=== PATIENT | female | born 1950 | race Caucasian/White ===

== ENCOUNTER 2020-05-06 13:38 | Inpatient (IN) ==
[2020-05-06] MEDS ORDERED: NS 1000 ML 1,000 ML IV ONE (14:03)
[2020-05-06] MEDS ORDERED: NS 1000 ML 1,000 ML ONE (14:03)
--- NOTE | 2020-05-06 14:08 | DR.DIZZY ---
HPI Time seen Time Seen by Provider: 05/06/20 14:03 PCP Primary Care Physician: maribeth Birch Complaint Chief Complaint Doctor Comments: pt janine over all weakness, She believes she is dehydrated she has no appetite is not eating plus she has diarrhea she states she has a BM whenever she eats no Brb etc.. Chief Complaint:: Have been having diarrhea with eating or drinking anything. Has been going on a few days.Norah swabbed for covid by rapid it was negative and send off was neg. Did another rapid on friday and it was negative. Self Treatment fo Chief Complaint: Took Ivermectin a week ago and took last dose on . Also has been taking zithromax along with vitamin D3,A,C,zinc COVID-19 Coronavirus risk:travel/contact w/high risk person: Yes Has patient experienced Coronavirus symptoms: No Source History Provided: Patient Mode of Arrival Mode of Arrival: Wheelchair Timing Onset of Chief Complaint: 04/21/20 Context Stroke Symptoms: None PMH PMH Past Medical History: Yes Past Medical History: Arthritis and Hypertension Past Surgical History: Yes Surgical History: Other Past Surgical History Comment: times 4 bypasses Family History History of Family Medical Conditions: Yes Family Medical History: Cancer, [place], Coronary Artery Disease and Hypertension Social History Does any household member use tobacco: No Do you use any recreational Drugs:: No Lives With: Spouse Lives Where: Home Travel Risk Coronavirus risk:travel/contact w/high risk person: Yes Has patient experienced Coronavirus symptoms: No Infectious screening In the last 2 months have you had wt loss of >10#?: NO Have you had fever, night sweats or hemotysis?: No Have you traveled outside the country in the last 6 months?: No Isolation: Droplet ROS Review of Systems Constitutional: Malaise, Weakness and Fatigue Eyes: No Symptoms Reported ENTM: No Symptoms Reported Respiratoy: No Symptoms Reported Cardiovascular: No Symptoms Reported Gastrointestinal/Abdominal: Diarrhea and Food Intolerance Genitourinary: No Symptoms Reported Neurological: No Symptoms Reported Musculoskeletal: No Symptoms Reported Integumentary: No Symptoms Reported Hematologic/Lymphatic: No Symptoms Reported Endocrine: No Symptoms Reported Psychiatric: No Symptoms Reported All Other Systems: Reviewed and Negative PE Vital Signs Vitals: Temperature 98.9 F Pulse Rate 78 Respiratory Rate 13 Blood Pressure [Left Arm] 160/69 Blood Pressure 130/61 O2 Sat by Pulse Oximetry 91 General Limitations: No Limitations General Appearance: Alert and Other (pt very weak) Head Head Exam: Normal Inspection, Atraumatic and Normocephalic Eyes Eye exam: Normal Appearance, PERRL and EOMI; negative Scleral Icterus, Conju nctival Injection and Nystagmus Pupils: Regular, Round: Bilateral Sclera/Conjunctival: Normal Inspection: Bilateral Anterior Chamber: Normal Inspection: Bilateral Posterior Chamber: Deferred: Bilateral ENT ENT Exam: Mucous Membranes Dry Neck Neck Exam: Normal Inspection, Full ROM and Trachea Midline; negative Tenderness Chest Chest Inspection: Normal Inspection and Symmetric Chest Wall Rise; negative Tenderness Respiratory Respiratory Exam: Normal Lung Sounds Bilat and Accessory Muscle Use; negative Chest Wall Tenderness Respiratory Exam: Bilateral: Clear to Auscultation Cardiovascular Cardiovascular Exam: Regular Rate, Normal Rhythm and Normal Heart Sounds Abdominal Exam Abdominal Exam: Normal Inspection, Normal Bowel Sounds and Soft; negative Distention, Tenderness and Guarding Rectal Rectal Exam: Deferred Extremeties Extremities Exam: Normal Inspection and Full ROM; negative Tenderness Back Back Exam: Normal Inspection and Full ROM; negative Tenderness Neurologic Neurological Exam: Alert, Oriented X3 and Normal Gait Patient Oriented To: Person, Place and Time Speech: Fluid Speech Cerebellar Function: Normal Gait Motor Strength - LUE: 5/5 Motor Strength - RUE: 5/5 Motor Strength - LLE: 5/5 Motor Strength - RLE: 5/5 Psychiatric Psychiatric Exam: Normal Affect and Normal Mood Skin Skin Exam: Warm, Dry, Intact and Normal Color MDM Differential Diagnosis Differential Diagnosis: Anemia, Dehydration, Dysrhythmia, Electrolyte disorder, Hypoglycemia and Pulmonary embolus Differential Diagnosis Comment: COVID 19 Bacterial enteritis Viral enteritis COURSE Treatment Treatment: discussed with Dr Portillo's nurse she will do admit orders ROR Labs Reviewed Laboratory Results Reviewed?: Yes Result Diagrams: 05/06/20 14:10 05/06/20 14:10 Laboratory: 05/06/20 15:40 Stool - Final WBC 7.7 X10^3/uL (3.6-10.0) 05/06/20 14:10 RBC 5.06 X10^6/uL (3.5-5.4) 05/06/20 14:10 Hgb 14.4 g/dL (12.0-16.0) 05/06/20 14:10 Hct 42.3 % (36.0-47.0) 05/06/20 14:10 MCV 83.6 fL (80.0-100.0) 05/06/20 14:10 MCH 28.4 pg (27.0-34.0) 05/06/20 14:10 MCHC 34.0 g/dL (33.0-35.0) 05/06/20 14:10 RDW 15.5 % (11.6-16.5) 05/06/20 14:10 Plt Count 185 X10^3/uL (150.0-450.0) 05/06/20 14:10 MPV 8.2 fL (7.4-11.0) 05/06/20 14:10 Neut % (Auto) 79.0 % (42.0-75.0) H 05/06/20 14:10 Lymph % (Auto) 12.1 % (21.0-51.0) L 05/06/20 14:10 [place] % (Auto) 8.4 % (0.0-13.0) 05/06/20 14:10 Eos % (Auto) 0.1 % (0.9-2.9) L 05/06/20 14:10 Baso % (Auto) 0.4 % (0.2-1.0) 05/06/20 14:10 Neut # (Auto) 6.1 x10^3/uL (2.2-4.8) H 05/06/20 14:10 Lymph # (Auto) 0.9 X10^3/uL (1.3-2.9) L 05/06/20 14:10 [place] # (Auto) 0.7 x10^3/uL (0.3-0.8) 05/06/20 14:10 Eos # (Auto) 0.0 x10^3/uL (0.0-0.2) 05/06/20 14:10 Baso # (Auto) 0.0 X10^3/uL (0.0-0.1) 05/06/20 14:10 Absolute Nucleated RBC 0.2 /100WBC 05/06/20 14:10 D-Dimer 1.50 ug/ml (0.0-0.57) H* 05/06/20 15:25 Sample Site Lr 05/06/20 15:05 ABG pH 7.470 (7.35-7.45) H 05/06/20 15:05 ABG pCO2 32.0 mmHg (35.0-45.0) L 05/06/20 15:05 ABG pO2 50.0 mmHg (80.0-100.0) L 05/06/20 15:05 ABG HCO3 23.3 mmol/L (22-26) 05/06/20 15:05 ABG O2 Saturation 88.0 % (90-100) L 05/06/20 15:05 ABG Base Excess 0.2 mmol/L (-2.0-2.0) 05/06/20 15:05 Nicolas Test Pos 05/06/20 15:05 A-a Gradient 60.0 mmHg 05/06/20 15:05 FiO2 21.0 05/06/20 15:05 Blood Gas Comments Amanda well cb 05/06/20 15:05 Sodium 141 mmol/L (136-145) 05/06/20 14:10 Corrected Sodium 142 mmol/L (136-145) 05/06/20 14:10 Potassium 4.8 mmol/L (3.5-5.1) 05/06/20 14:10 Chloride 105 mmol/L (98-107) 05/06/20 14:10 Carbon Dioxide 21.9 mmol/L (21-32) 05/06/20 14:10 BUN 17 mg/dL (7-18) 05/06/20 14:10 Creatinine 0.86 mg/dL (0.55-1.02) 05/06/20 14:10 Est GFR (MDRD) Af Amer > 60 (>60) 05/06/20 14:10 Est GFR (MDRD) Non-Af > 60 (>60) 05/06/20 14:10 Glucose 125 mg/dL (65-99) H 05/06/20 14:10 Calcium 8.8 mg/dL (8.5-10.1) 05/06/20 14:10 Corrected Calcium 9.6 mg/dL (8.5-10.1) 05/06/20 14:10 Ferritin 1428 ng/mL (8-252) H 05/06/20 14:04 Total Bilirubin 0.60 mg/dL (0.2-1.0) 05/06/20 14:10 AST 87 Units/L (15-37) H 05/06/20 14:10 ALT 31 Units/L (12-78) 05/06/20 14:10 Alkaline Phosphatase 68 Units/L (46-116) 05/06/20 14:10 C-Reactive Protein 55.00 mg/L (0-3.0) H 05/06/20 14:04 B-Natriuretic Peptide 55.4 pg/mL (0-79) 05/06/20 14:04 Total Protein 6.9 g/dL (6.4-8.2) 05/06/20 14:10 Albumin 3.0 g/dL (3.4-5.0) L 05/06/20 14:10 Globulin 3.9 g/dL (2.5-4.5) 05/06/20 14:10 Albumin/Globulin Ratio 0.8 Ratio (1.1-2.1) L 05/06/20 14:10 Amylase 49 Units/L (25-115) 05/06/20 14:10 Lipase 224 Units/L (73-393) 05/06/20 14:10 Specimen Type Random urine 05/06/20 14:14 Urine Color Yellow (YELLOW) 05/06/20 14:14 Urine Appearance Hazy (CLEAR) 05/06/20 14:14 Urine pH 6.0 (5.0 - 8.0) 05/06/20 14:14 Ur Specific [place] 1.025 (1.000-1.030) 05/06/20 14:14 Urine Protein 3+ (NEGATIVE) 05/06/20 14:14 Urine Glucose (UA) Negative (NEGATIVE) 05/06/20 14:14 Urine Ketones Negative (NEGATIVE) 05/06/20 14:14 Urine Occult Blood 1+ (NEGATIVE) 05/06/20 14:14 Urine Nitrite Positive (NEGATIVE) 05/06/20 14:14 Urine Bilirubin Negative (NEGATIVE) 05/06/20 14:14 Urine Urobilinogen Normal (NORMAL) 05/06/20 14:14 Ur Leukocyte Esterase 1+ (NEGATIVE) 05/06/20 14:14 Urine RBC 3-5 /HPF (0-3) A 05/06/20 14:14 Urine WBC 0-2 /HPF (0-5) 05/06/20 14:14 Ur Squamous Epith Cells Few /HPF (NEGATIVE) 05/06/20 14:14 Urine Bacteria 1+ /HPF (NEGATIVE) 05/06/20 14:14 Fine Granular Casts Few /LPF (NEGATIVE) 05/06/20 14:14 Ur Culture Indicated? No/not indicated 05/06/20 14:14 Stool for White Cells Positive (NEGATIVE) A 05/06/20 15:40 SARS CoV-2 RNA Rapid KEAVN Positive (NEGATIVE) A 05/06/20 15:28 XRAY XRAY Interpreted by: Radiologist X-ray Results: all viewed independently by me. AAS NAd CT abdo/pevis no intraabdo.pelvic abn but lungs compatibel with Covid 19 pneumonia CTA no PE findings not typical of COVID 19 pneumona i Opioid Opioid Risk Tool Age (Saeid box if 16-45): No History of Preadolescent Sexual Abuse: No Total: 0 Total Score Risk Category: Low Risk Copyright: [facility] predicting aberrant behaviors Diagnosis Discharge Problem: COVID-19, Bacterial enteritis, unspecified Pneumonia Qualifiers: Pneumonia type: due to unspecified organism Laterality: bilateral Lung location: unspecified part of lung Qualified Code(s): J18.9 - Pneumonia, unspecified organism
[2020-05-06 14:29] LABS: BASOPHILS % (AUTO) 0.4 % (0.2-1.0); EOSINOPHILS % (AUTO) 0.1 % (0.9-2.9); HEMATOCRIT 42.3 % (36.0-47.0); HEMOGLOBIN 14.4 g/dL (12.0-16.0); LYMPHOCYTES # (AUTO) 0.9 X10^3/uL (1.3-2.9); LYMPHOCYTES % (AUTO) 12.1 % (21.0-51.0); MEAN CORPUSCULAR HEMOGLOBIN 28.4 pg (27.0-34.0); MEAN CORPUSCULAR VOLUME 83.6 fL (80.0-100.0); MEAN PLATELET VOLUME 8.2 fL (7.4-11.0); MONOCYTES # (AUTO) 0.7 x10^3/uL (0.3-0.8); MONOCYTES % (AUTO) 8.4 % (0.0-13.0); NEUTROPHILS # (AUTO) 6.1 x10^3/uL (2.2-4.8); PLATELET COUNT 185 X10^3/uL (150.0-450.0); RED BLOOD COUNT 5.06 X10^6/uL (3.5-5.4); RED CELL DISTRIBUTION WIDTH 15.5 % (11.6-16.5); WHITE BLOOD COUNT 7.7 X10^3/uL (3.6-10.0)
[2020-05-06 14:30] LABS: BILIRUBIN,URINE NEGATIVE (NEGATIVE); BLOOD/HEMOGLOBIN,URINE 1+ (NEGATIVE); GLUCOSE, URINE NEGATIVE (NEGATIVE); KETONES,URINE NEGATIVE (NEGATIVE); LEUKOCYTE ESTERASE ,URINE 1+ (NEGATIVE); NITRITES,URINE POSITIVE (NEGATIVE); PROTEIN,URINE 3+ (NEGATIVE); UROBILINOGEN,URINE NORMAL (NORMAL)
[2020-05-06 14:43] LABS: ALANINE AMINOTRANSFERASE 31 Units/L (12-78); ALKALINE PHOSPHATASE 68 Units/L (46-116); AMYLASE 49 Units/L (25-115); ASPARTATE AMINO TRANSFERASE 87 Units/L (15-37); BLOOD UREA NITROGEN 17 mg/dL (7-18); CALCIUM 8.8 mg/dL (8.5-10.1); CARBON DIOXIDE 21.9 mmol/L (21-32); CHLORIDE 105 mmol/L (98-107); COR CA(FOR HYPOALB) 9.6 mg/dL (8.5-10.1); COR NA(FOR HYPERGLY) 142 mmol/L (136-145); CREATININE 0.86 mg/dL (0.55-1.02); LIPASE 224 Units/L (73-393); SODIUM 141 mmol/L (136-145); TOTAL PROTEIN 6.9 g/dL (6.4-8.2); eGFR NON BLACK RACES > 60 (>60)
[2020-05-06 14:52] LABS: APPEARANCE,URINE HAZY (CLEAR); BACTERIA,URINE 1+ /HPF (NEGATIVE); COLOR,URINE YELLOW (YELLOW); SQUAMOUS EPITHELIAL CELL,UR FEW /HPF (NEGATIVE)
[2020-05-06 14:53] LABS: FINE GRANULAR CASTS,URINE FEW /LPF (NEGATIVE)
[2020-05-06 15:09] LABS: ABG BASE EXCESS 0.2 mmol/L (-2.0-2.0); ABG HCO3 23.3 mmol/L (22-26)
[2020-05-06 15:10] LABS: ABG ALLEN TEST POS
[2020-05-06] MEDS ORDERED: PROVENTIL NEB TX 0.083% 2.5MG/ 3ML NEB ONE (15:23)
[2020-05-06] MEDS ORDERED: DECADRON INJ IVP ONE (15:23)
[2020-05-06] MEDS ORDERED: DECADRON INJ ONE (15:31)
--- NOTE | 2020-05-06 15:44 | RAD ---
HISTORYPain diarrheaSTUDYAbdomen with PA chest three viewsCOMPARISONNoneFINDINGSPA chest demonstrates normal heart size, sternal wires, no evidence for pleural fluid or pneumoperitoneum. Linear density left lower lung consistent with fibrosis/atelectasis.Supine and upright views of abdomen demonstrate nonobstructing gas pattern. No significant intestinal distention, ileus, pneumatosis or free air. Visceral outlines visualized are normal. No urinary calcification or ascites.IMPRESSIONNo acute findings identified in the chest or abdomen. Status post CABG.Electronically signed by: RAUL GOLDMAN (May 06, 2020 15:42:04)
[2020-05-06] MEDS: ROBITUSSIN DM PO SCH (15:45)
[2020-05-06] MEDS ORDERED: PROVENTIL NEB TX 0.083% 2.5MG/ 3ML ONE (15:57)
[2020-05-06] MEDS ORDERED: CIPRO TAB 500 MG PO ONE ×2 (16:08→16:10)
--- NOTE | 2020-05-06 16:16 | CT ---
HISTORYCOVID PNEUMONIA, WEAKNESS, DIARRHEASTUDYABDOMEN/PELVIS W/O CONCOMPARISONNoneTECHNIQUEMultiple axial images of the abdomen and pelvis were obtained from the lung bases to the pubic symphysis without the administration of IV contrast. Dose reduction techniques including Automated Exposure Control (AEC) and adjustment of mA and kV were utilized.FINDINGSThe visualized portions of the lung bases demonstrate scattered interstitial changes compatible history of COVID-19 pneumonia. The kidneys demonstrates tiny nonobstructive bilateral renal stones. The solid organs are otherwise unremarkable in their noncontrast appearance. The gallbladder is unremarkable in its CT appearance . No significant mesenteric lymphadenopathy or stranding can be observed. No free fluid or free air is seen within the abdomen. No bowel wall thickening or bowel dilatation is present. The colon demonstrates diverticulosis predominantly involving the sigmoid colon without evidence for diverticulitis. The appendix is normal.. The urinary bladder is grossly unremarkable. The bony structures demonstrate degenerative changes throughout the spine with some mild scoliosis which is convex to the right.IMPRESSIONLeft-sided diverticulosis without evidence for diverticulitis.Tiny nonobstructive renal stones.Findings of COVID-19 pneumonia.Electronically signed by: DRE GALLARDO (May 06, 2020 16:14:41)
[2020-05-06] MEDS ORDERED: NS 100 ML IV 100 ML IV ONE (16:28)
--- NOTE | 2020-05-06 17:29 | CT ---
HISTORYHYPOXIA, COVID, +D DIMERSTUDYCTA CHESTCOMPARISONTECHNIQUEAxial CT images of the chest were obtained after the administration of 75 mL Omnipaque 350 IV contrast utilizing a CTA protocol. 3D MIPS were performed and reviewed for further evaluation.Radiation dose: 452.10 mGy-cm total DLPFINDINGSNo significant pericardial effusion.No mediastinal or hilar lymphadenopathy.Aorta is normal in caliber without dissection.Pulmonary arteries are normal in caliber without filling defects to suggest a pulmonary embolus.Airways are widely patent.Thyroid appears normal.No pleural effusion.Hazy diffuse airspace opacities with a mosaic perfusion pattern in addition to intra and interlobular septal thickening.No pneumothorax.No concerning lung parenchymal lesion identified.Imaged portion of the upper abdomen is unremarkable.No acute osseous abnormality.Mild multilevel degenerative disc disease.Vertebral body heights maintained with normal alignment.Status post median sternotomy.IMPRESSIONFindings are concerning for the sequela of acute cardiogenic edema; although an atypical or viral infectious should be considered. Findings are not typical for the imaging findings of COVID-19.No pulmonary embolus identified.Electronically signed by: Margarito Rubalcava (May 06, 2020 17:27:32)
[2020-05-06] MEDS ORDERED: PHARMACY CONSULT - IVERMECTIN XX SCH (19:08)
[2020-05-06] MEDS ORDERED: TUSSIONEX PENNKINETIC SUSP PO PRN (19:08)
[2020-05-06] MEDS ORDERED: VITAMIN D (1.25MG) PO SCH (19:08)
[2020-05-06] MEDS ORDERED: REMDESIVIR 200 MG in NS 250 ML IV 250 ML IV ONE (19:08)
[2020-05-06] MEDS ORDERED: NORCO 5/325 MG TAB PO PRN (19:08)
[2020-05-06] MEDS ORDERED: XANAX PO PRN (19:29)
[2020-05-06] MEDS: SNACK - Diabetic Appropriate PO SCH (20:00)
[2020-05-06] MEDS: PULMICORT NEB TX 0.5 MG NEB SCH (20:40)
[2020-05-06] MEDS: ACCUNEB 1.25 MG NEBULE NEB SCH (20:40)
[2020-05-06] MEDS: MUCOMYST 20% 200 MG/ML NEB SCH (20:40)
[2020-05-06] MEDS ORDERED: LIPITOR TAB 80 MG PO SCH (21:00)
[2020-05-06] MEDS ORDERED: NS 1/2 1000 ML IV 1,000 ML IV ONE (22:43)
[2020-05-06] MEDS: TESSALON PERLES PO SCH (23:15)
[2020-05-06] MEDS: LOVENOX INJ 40 MG SYR SC SCH (23:15)
[2020-05-06] MEDS: FORTAZ or TAZICEF VIAL INJ IV SCH (23:15)
[2020-05-06] MEDS: IVERMECTIN PO SCH (23:15)
[2020-05-06] MEDS: NS 1/2 1000 ML IV 1,000 ML IV SCH (23:15)
[2020-05-06] MEDS: PEPCID 20 MG IV PREMIX* 20 MG/50 ML BAG IV SCH (23:15)
[2020-05-06] MEDS: THEO-DUR TAB 300 MG 12-HR PO SCH (23:15)
[2020-05-06] MEDS: PROTONIX INJ 40 MG VIAL IVP SCH (23:15)
[2020-05-06] MEDS: ASCORBIC ACID INJ MULTI-DOSE VIAL 1,500 MG in NS 50 ML IV 50 ML IV SCH (23:15)
[2020-05-06] MEDS: THIAMINE HCL INJ IVP SCH (23:15)
[2020-05-06] MEDS: MELATONIN PO SCH (23:15)
[2020-05-06] MEDS: SOLU-Medrol 125 MG VIAL IVP SCH (23:15)
[2020-05-06] MEDS: SINGULAIR TAB 10 MG PO SCH (23:15)
[2020-05-07] MEDS: FORTAZ or TAZICEF VIAL INJ IV SCH ×4 (00:42→21:33)
[2020-05-07] MEDS: ROBITUSSIN DM PO SCH ×5 (00:45→20:31)
[2020-05-07] MEDS: VITAMIN D3 125 mcg (5,000 UNITS) PO SCH ×2 (00:45→11:21)
[2020-05-07] MEDS: MILK OF MAGNESIA PO SCH ×3 (00:49→21:32)
[2020-05-07] MEDS: ZINC SULFATE PO SCH ×2 (00:50→11:21)
[2020-05-07] MEDS ORDERED: NS 250 ML IV 250 ML IV ONE (01:32)
[2020-05-07] MEDS ORDERED: REMDESIVIR IV ONE (01:32)
[2020-05-07] MEDS: SOLU-Medrol 125 MG VIAL IVP SCH ×4 (03:30→20:32)
[2020-05-07] MEDS: ASCORBIC ACID INJ MULTI-DOSE VIAL 1,500 MG in NS 50 ML IV 50 ML IV SCH ×4 (03:35→20:30)
[2020-05-07 04:43] LABS: ABG ALLEN TEST POS; ABG HCO3 21.6 mmol/L (22-26)
--- NOTE | 2020-05-07 06:18 | RAD ---
HISTORYSOBSTUDYPortable AP chestCOMPARISONCTA chest 05/06/2020FINDINGSHeart size normal with sternal wires. Diffuse interstitial bilateral infiltrates and parenchymal distortion noted especially in the lower lungs. No discrete mass, lobar consolidation, pneumothorax or pleural fluid.IMPRESSIONDescribed bilateral pulmonary infiltrates consistent with atypical pneumonia.Electronically signed by: RAUL GOLDMAN (May 07, 2020 06:16:31)
[2020-05-07 06:30] LABS: BASOPHILS % (AUTO) 0.1 % (0.2-1.0); HEMATOCRIT 40.1 % (36.0-47.0); HEMOGLOBIN 13.1 g/dL (12.0-16.0); LYMPHOCYTES # (AUTO) 0.5 X10^3/uL (1.3-2.9); LYMPHOCYTES % (AUTO) 14.7 % (21.0-51.0); MEAN CORPUSCULAR HEMOGLOBIN 27.5 pg (27.0-34.0); MEAN CORPUSCULAR HGB CONC 32.8 g/dL (33.0-35.0); MEAN PLATELET VOLUME 7.9 fL (7.4-11.0); MONOCYTES # (AUTO) 0.2 x10^3/uL (0.3-0.8); MONOCYTES % (AUTO) 4.8 % (0.0-13.0); NEUTROPHILS # (AUTO) 2.8 x10^3/uL (2.2-4.8); NEUTROPHILS % (AUTO) 80.4 % (42.0-75.0); PLATELET COUNT 179 X10^3/uL (150.0-450.0); RED BLOOD COUNT 4.77 X10^6/uL (3.5-5.4); RED CELL DISTRIBUTION WIDTH 15.4 % (11.6-16.5); WHITE BLOOD COUNT 3.4 X10^3/uL (3.6-10.0)
[2020-05-07] MEDS: TESSALON PERLES PO SCH ×3 (06:30→21:33)
[2020-05-07 06:41] LABS: ALANINE AMINOTRANSFERASE 24 Units/L (12-78); ALBUMIN 2.7 g/dL (3.4-5.0); ALKALINE PHOSPHATASE 63 Units/L (46-116); ASPARTATE AMINO TRANSFERASE 55 Units/L (15-37); BLOOD UREA NITROGEN 12 mg/dL (7-18); CALCIUM 8.8 mg/dL (8.5-10.1); CARBON DIOXIDE 21.6 mmol/L (21-32); CHLORIDE 108 mmol/L (98-107); COR CA(FOR HYPOALB) 9.8 mg/dL (8.5-10.1); COR NA(FOR HYPERGLY) 146 mmol/L (136-145); CREATININE 0.91 mg/dL (0.55-1.02); SODIUM 144 mmol/L (136-145); TOTAL PROTEIN 6.8 g/dL (6.4-8.2); eGFR NON BLACK RACES > 60 (>60)
[2020-05-07 08:02] VITALS: BMI 25.6
[2020-05-07] MEDS ORDERED: REMDESIVIR 100 MG in NS 250 ML IV 250 ML IV SCH (09:00)
[2020-05-07] MEDS: PULMICORT NEB TX 0.5 MG NEB SCH ×2 (09:40→20:30)
[2020-05-07] MEDS: MUCOMYST 20% 200 MG/ML NEB SCH ×4 (09:40→20:30)
[2020-05-07] MEDS: ACCUNEB 1.25 MG NEBULE NEB SCH ×4 (09:40→20:30)
[2020-05-07] MEDS ORDERED: ACTEMRA 400 MG in NS 100 ML IV 80 ML IV NR (10:30)
[2020-05-07] MEDS: PEPCID 20 MG IV PREMIX* 20 MG/50 ML BAG IV SCH (11:17)
[2020-05-07] MEDS: LOVENOX INJ 40 MG SYR SC SCH (11:19)
[2020-05-07] MEDS: PROTONIX INJ 40 MG VIAL IVP SCH (11:20)
[2020-05-07] MEDS: MOBIC TAB 15 MG PO SCH (11:20)
[2020-05-07] MEDS: ZyrTEC TAB 10 MG PO SCH (11:20)
[2020-05-07] MEDS: LOPRESSOR TAB 25 MG PO SCH (11:21)
[2020-05-07] MEDS: LIPITOR TAB 20 MG PO SCH (11:21)
[2020-05-07] MEDS: FOLIC ACID TAB 1 MG PO SCH (11:21)
[2020-05-07] MEDS: THIAMINE HCL INJ IVP SCH ×2 (11:21→20:32)
[2020-05-07] MEDS: THEO-DUR TAB 300 MG 12-HR PO SCH ×2 (11:22→20:32)
[2020-05-07] MEDS: LEVAQUIN PREMIX IV 500 MG 500 MG/100 ML BAG IV SCH ×2 (11:23)
[2020-05-07] MEDS ORDERED: METHOTREXATE SODIUM 25 MG/ML IM SCH (12:37)
[2020-05-07] MEDS: DIFLUCAN PO SCH (18:05)
--- NOTE | 2020-05-07 19:38 | PCM.PROG ---
Progress Note - Progress Note for Day of Date of Exam: 05/06/20 - Past Medical Family Social History Allergies: Allergies aspartame [From Nutrasweet Aspartame] Allergy (Verified 05/07/20 17:09) Sulfa (Sulfonamide Antibiotics) Allergy (Verified 02/09/17 17:13) - Vital Signs and I&O's Vital Signs: Temperature 98.3 F Pulse Rate [Left Brachial] 66 Pulse Rate 77 Respiratory Rate 20 Blood Pressure [Left Arm] 127/61 Blood Pressure 132/63 O2 Sat by Pulse Oximetry 95 Intake and Output: Intake & Output 05/05/20 05/06/20 05/07/20 05/08/20 11:59 11:59 11:59 11:59 Intake Total 540 / 540 800 / 800 Balance 540 / 540 800 / 800 - Physical Exam Speech Pattern: Clear, Appropriate - Laboratory and Diagnostics Result Diagrams: 05/07/20 05:57 05/07/20 05:57 Labs: 05/06/20 15:40 Stool Stool Culture - Preliminary 05/06/20 15:40 Stool - Final Laboratory WBC 3.4 X10^3/uL (3.6-10.0) L 05/07/20 05:57 RBC 4.77 X10^6/uL (3.5-5.4) 05/07/20 05:57 Hgb 13.1 g/dL (12.0-16.0) 05/07/20 05:57 Hct 40.1 % (36.0-47.0) 05/07/20 05:57 MCV 84.0 fL (80.0-100.0) 05/07/20 05:57 MCH 27.5 pg (27.0-34.0) 05/07/20 05:57 MCHC 32.8 g/dL (33.0-35.0) L 05/07/20 05:57 RDW 15.4 % (11.6-16.5) 05/07/20 05:57 Plt Count 179 X10^3/uL (150.0-450.0) 05/07/20 05:57 MPV 7.9 fL (7.4-11.0) 05/07/20 05:57 Neut % (Auto) 80.4 % (42.0-75.0) H 05/07/20 05:57 Lymph % (Auto) 14.7 % (21.0-51.0) L 05/07/20 05:57 [place] % (Auto) 4.8 % (0.0-13.0) 05/07/20 05:57 Eos % (Auto) 0.0 % (0.9-2.9) L 05/07/20 05:57 Baso % (Auto) 0.1 % (0.2-1.0) L 05/07/20 05:57 Neut # (Auto) 2.8 x10^3/uL (2.2-4.8) 05/07/20 05:57 Lymph # (Auto) 0.5 X10^3/uL (1.3-2.9) L 05/07/20 05:57 [place] # (Auto) 0.2 x10^3/uL (0.3-0.8) L 05/07/20 05:57 Eos # (Auto) 0.0 x10^3/uL (0.0-0.2) 05/07/20 05:57 Baso # (Auto) 0.0 X10^3/uL (0.0-0.1) 05/07/20 05:57 Absolute Nucleated RBC 0.3 /100WBC 05/07/20 05:57 D-Dimer 1.24 ug/ml (0.0-0.57) H* 05/07/20 05:57 Sample Site Lr 05/07/20 05:00 ABG pH 7.480 (7.35-7.45) H 05/07/20 05:00 ABG pCO2 29.0 mmHg (35.0-45.0) L 05/07/20 05:00 ABG pO2 51.0 mmHg (80.0-100.0) L 05/07/20 05:00 ABG HCO3 21.6 mmol/L (22-26) L 05/07/20 05:00 ABG O2 Saturation 89.0 % (90-100) L 05/07/20 05:00 ABG Base Excess -1.0 mmol/L (-2.0-2.0) 05/07/20 05:00 Nicolas Test Pos 05/07/20 05:00 A-a Gradient 141.0 mmHg 05/07/20 05:00 FiO2 32.0 05/07/20 05:00 Blood Gas Comments Amanda well sw 05/07/20 05:00 Sodium 144 mmol/L (136-145) 05/07/20 05:57 Corrected Sodium 146 mmol/L (136-145) H 05/07/20 05:57 Potassium 3.6 mmol/L (3.5-5.1) 05/07/20 05:57 Chloride 108 mmol/L (98-107) H 05/07/20 05:57 Carbon Dioxide 21.6 mmol/L (21-32) 05/07/20 05:57 BUN 12 mg/dL (7-18) 05/07/20 05:57 Creatinine 0.91 mg/dL (0.55-1.02) 05/07/20 05:57 Est GFR (MDRD) Af Amer > 60 (>60) 05/07/20 05:57 Est GFR (MDRD) Non-Af > 60 (>60) 05/07/20 05:57 Glucose 185 mg/dL (65-99) H 05/07/20 05:57 POC Glucose (mg/dL) 141 mg/dL (65-99) H 05/07/20 19:16 Calcium 8.8 mg/dL (8.5-10.1) 05/07/20 05:57 Corrected Calcium 9.8 mg/dL (8.5-10.1) 05/07/20 05:57 Ferritin 1374 ng/mL (8-252) H 05/07/20 05:57 Total Bilirubin 0.40 mg/dL (0.2-1.0) 05/07/20 05:57 AST 55 Units/L (15-37) H 05/07/20 05:57 ALT 24 Units/L (12-78) 05/07/20 05:57 Alkaline Phosphatase 63 Units/L (46-116) 05/07/20 05:57 C-Reactive Protein 49.00 mg/L (0-3.0) H 05/07/20 05:57 B-Natriuretic Peptide 213 pg/mL (0-79) H 05/07/20 05:57 Total Protein 6.8 g/dL (6.4-8.2) 05/07/20 05:57 Albumin 2.7 g/dL (3.4-5.0) L 05/07/20 05:57 Globulin 4.1 g/dL (2.5-4.5) 05/07/20 05:57 Albumin/Globulin Ratio 0.7 Ratio (1.1-2.1) L 05/07/20 05:57 Amylase 49 Units/L (25-115) 05/06/20 14:10 Lipase 224 Units/L (73-393) 05/06/20 14:10 Specimen Type Random urine 05/06/20 14:14 Urine Color Yellow (YELLOW) 05/06/20 14:14 Urine Appearance Hazy (CLEAR) 05/06/20 14:14 Urine pH 6.0 (5.0 - 8.0) 05/06/20 14:14 Ur Specific [place] 1.025 (1.000-1.030) 05/06/20 14:14 Urine Protein 3+ (NEGATIVE) 05/06/20 14:14 Urine Glucose (UA) Negative (NEGATIVE) 05/06/20 14:14 Urine Ketones Negative (NEGATIVE) 05/06/20 14:14 Urine Occult Blood 1+ (NEGATIVE) 05/06/20 14:14 Urine Nitrite Positive (NEGATIVE) 05/06/20 14:14 Urine Bilirubin Negative (NEGATIVE) 05/06/20 14:14 Urine Urobilinogen Normal (NORMAL) 05/06/20 14:14 Ur Leukocyte Esterase 1+ (NEGATIVE) 05/06/20 14:14 Urine RBC 3-5 /HPF (0-3) A 05/06/20 14:14 Urine WBC 0-2 /HPF (0-5) 05/06/20 14:14 Ur Squamous Epith Cells Few /HPF (NEGATIVE) 05/06/20 14:14 Urine Bacteria 1+ /HPF (NEGATIVE) 05/06/20 14:14 Fine Granular Casts Few /LPF (NEGATIVE) 05/06/20 14:14 Ur Culture Indicated? No/not indicated 05/06/20 14:14 Stool for White Cells Positive (NEGATIVE) A 05/06/20 15:40 SARS CoV-2 RNA Rapid KEVAN Positive (NEGATIVE) A 05/06/20 15:28 Blood Type O POSITIVE 05/06/20 20:25
--- NOTE | 2020-05-07 19:42 | DR.H&P ---
H&P - History & Physical for Day of: H&P Date: 05/06/20 - Chief Complaint Chief Complaint: WEAKNESS, DIARRHEA, COUGH, SOB - History of Present Illness History of Present Illness: IS A 70 YEAR OLD PATIENT OF OURS. SHE PRESENTED TO THE ER WITH COMPLAINTS OF WEAKNESS, DIARRHEA, COUGH, AND SHORTNESS OF BREATH. SHE REPORTS TESTING POSITIVE FOR COVID-19 ON 05/03/20, BUT WAS NEGATIVE AT THE TIME. ALTHOUGH SHE WAS NEGATIVE, SHE WAS PRESCRIBED IVERMECTIN, Z-KYLEIGH, AND VITAMIN D3, VITAMIN A, VITAMIN C, AND ZIND. SHE DENIES IMPROVEMENT AND COMPLAINS OF WORSENING SYMPTOMS. SHE ALSO REPORTS A DECREASED APPETITE. PMH INCLUDES HTN, ARTHRITIS, CAD, AND BYPASS X 4. SHE DENIES CHEST PAIN OR FEVER. UPON ARRIVAL TO THE ER, PATIENT WAS ON ROOM AIR. HER VITAL SIGNS WERE 98.9-101-18-91%RA-118/55. HER SATURATIONS DROPPED TO 87%. SHE WAS PLACED ON NASAL CANNULA AT 4 LPM. SATURATIONS INCREASED TO 95%. LABS WERE OBTAINED. ABNORMAL LAB VALUES INCLUDE THE FOLLOWING: D-DIMER 1.50, FERRITIN 1428, GLUCOSE 125, AST 87, ALBUMIN 3.0, CRP 55.0. AN ABG WAS OBTAINED AND REVEALED: PH 7.470, PC02 32, P02 50, HC03 23.3, 02 SAT 88, A-A GRADIENT 60, FI02 21. BLOOD CULTURES WERE SET UP. STOOOL IS POSITIVE FOR WHITE CELLS. COVID-19 POSITIVE. AN ABDOMINAL SERIES WAS OBTAINED AND REVEALED: PA chest demonstrates normal heart size, sternal wires, no evidence for pleural fluid or pneumoperitoneum. Linear density left lower lung consistent with fibrosis/atelectasis. Supine and upright views of abdomen demonstrate non-obstructing gas pattern. No significant intestinal distention, ileus, pneumatosis or free air. Visceral outlines visualized are normal. No urinary calcification or ascites. AN ABDOMEN/PELVIS CT WITHOUT CONTRAST WAS OBTAINED AND REVEALED: Left-sided diverticulosis without evidence for diverticulitis. Tiny nonobstructive renal stones. Findings of COVID-19 pneumonia. A CHEST CTA WAS ALSO OBTAINED AND REVEALED: Findings are concerning for the sequela of acute cardiogenic edema; although an atypical or viral infectious should be considered. No pulmonary embolus identified. IN THE ER, SHE WAS GIVEN A NORMAL SALINE BOLUS, DECADRON 8MG IV X 1, PROVENTIL NEB TX X 1, CIPRO 500MG IV X 1, AND REMDESIVIR 200MG IV X 1. SHE WAS ADMITTED TO THE [facility] FOR PNEUMONIA DUE TO COVID-19, HYPOXIA, AND BACTERIAL ENTERITIS. SHE WAS STARTED ON NS AT 75ML/HR, REMDESIVIR 100MG IV DAILY, ACTEMRA 400MG IV X 1 DOSE, LEVAQUIN 500MG IV DAILY, FORTAZ 1G IV Q8H, ASCORBIC ACID 1500MG IV Q6H, PULMICORT NEB TX BID, ALBUTEROL NEB TX QID, MUCOMYST IN NEBS QID, XANAX 0.5MG PO DAILY PRN, LIPITOR 20MG PO DAILY, TESSALON PERLES TID, TUSSIONEX 5ML PO Q12H PRN, ROBITUSSIN DM 10ML PO QID, DIFLUCAN 100MG PO DAILY, FOLIC ACID 1MG PO DAILY, NORCO 5/325MG PO Q8H PRN, IVERMECTIN, PHARMACY TO DOSE, MAGIC MOUTHWASH QID, MILK OF MAG 30ML PO BID, MELATONIN 10MG PO HS, MOBIC 15MG PO DAILY, SOLU- MEDROL 125MG IV Q6H, LOPRESSOR 25MG PO DAILY, SINGULAIR 10MG PO HS, PROTONIX 40MG IV DAILY, THEOPHYLLINE 300MG PO BID, THIAMINE 200MG IV BID, ZINC SULFATE 220MG PO DAILY, LOVENOX 40MG SC DAILY, ZYRTEC 10MG PO HS, VITAMIN D3 DAILY, PEPCID 20MG IV DAILY. WE WILL OBTAIN AN ECHO. OTHERWISE, WE PLAN TO FOLLOW UP WITH AM LABS, CHEST XRAY, ABG, AND CONTINUE TO MONITOR. TIME SPENT ON CLINICAL ASSESSMENT, REVIEWING LABS AND IMAGING, DECISION MAKING, AND DOCUMENTATION GREATER THAN 75 MINUTES - Past Medical History Past Medical History: Hypertension, Arthritis - Past Surgical History Surgical History: CABG/Valve Surgery - Family History Family Medical History: Cancer, [place], Coronary Artery Disease, Hypertension - Social History Does any household member use tobacco: No Alcohol Use: None Drug Use: None - Medications Home Medications: aspartame [From Nutrasweet Aspartame] Allergy (Verified 05/07/20 17:09) Sulfa (Sulfonamide Antibiotics) Allergy (Verified 02/09/17 17:13) CONTINUE taking the following medications atorvastatin 20 mg PO DAILY 05/06/20 [History] azithromycin 500 mg PO DAILY 05/06/20 [History] ergocalciferol (vitamin D2) 1,250 mcg PO WEEKLY 05/06/20 [History] metoprolol tartrate 25 mg PO DAILY 05/06/20 [History] - Review of Systems Constitutional: Weakness Eyes: No Symptoms Reported ENT: No Symptoms Reported Respiratory: Cough, Shortness of Breath Cardiovascular: No Symptoms Reported Gastrointestinal: Diarrhea Genitourinary: No Symptoms Reported Musculoskeletal: No Symptoms Reported Skin: No Symptoms Reported Neurological: Weakness - Physical Exam Vital Signs: Temperature 98.3 F Pulse Rate [Left Brachial] 66 Pulse Rate 77 Respiratory Rate 20 Blood Pressure [Left Arm] 127/61 Blood Pressure 132/63 O2 Sat by Pulse Oximetry 95 Oriented: Normal Eyes: Normal Ear: Normal Nose: Normal Respiratory: Diminished Throughout Cardiovascular: Tachycardia : Normal Auscultation: Bowel Sounds: Normal Palpation: Normal Tenderness: Normal Skin: Normal Musculoskeletal: Normal Psychiatric: Normal Mood Description: Calm Affect: Normal Speech Pattern: Clear - Assessment/Plan (1) Pneumonia due to COVID-19 virus Status: Acute Plan: ADMIT, SUPPLEMENTAL OXYGEN, NS AT 75ML/HR, REMDESIVIR 100MG IV DAILY, ACTEMRA 400MG IV X 1 DOSE, LEVAQUIN 500MG IV DAILY, FORTAZ 1G IV Q8H, ASCORBIC ACID 1500MG IV Q6H, PULMICORT NEB TX BID, ALBUTEROL NEB TX QID, MUCOMYST IN NEBS QID, XANAX 0.5MG PO DAILY PRN, LIPITOR 20MG PO DAILY, TESSALON PERLES TID, TUSSIONEX 5ML PO Q12H PRN, ROBITUSSIN DM 10ML PO QID, DIFLUCAN 100MG PO DAILY, FOLIC ACID 1MG PO DAILY, NORCO 5/325MG PO Q8H PRN, IVERMECTIN, PHARMACY TO DOSE, MAGIC MOUTHWASH QID, MILK OF MAG 30ML PO BID, MELATONIN 10MG PO HS, MOBIC 15MG PO DAILY, SOLU-MEDROL 125MG IV Q6H, LOPRESSOR 25MG PO DAILY, SINGULAIR 10MG PO HS, PROTONIX 40MG IV DAILY, THEOPHYLLINE 300MG PO BID, THIAMINE 200MG IV BID, ZINC SULFATE 220MG PO DAILY, LOVENOX 40MG SC DAILY, ZYRTEC 10MG PO HS, VITAMIN D3 DAILY, PEPCID 20MG IV DAILY. OBTAIN ECHO (2) Hypoxia Status: Acute (3) Bacterial enteritis, unspecified Status: Acute - Allergies Allergies/Adverse Reactions: Allergies Allergy/AdvReac Type Severity Reaction Status Date / Time aspartame Allergy Verified 05/07/20 17:09 [From Nutrasweet Aspartame] Sulfa (Sulfonamide Allergy Verified 02/09/17 17:13 Antibiotics)
[2020-05-07] MEDS ORDERED: NS 1/2 1000 ML IV 1,000 ML IV ONE (20:21)
[2020-05-07] MEDS: NS 1/2 1000 ML IV 1,000 ML IV SCH ×2 (20:29→21:32)
[2020-05-07] MEDS: SNACK - Diabetic Appropriate PO SCH (20:29)
[2020-05-07] MEDS: MELATONIN PO SCH (20:30)
[2020-05-07] MEDS: REMDESIVIR 100 MG in NS 250 ML IV 250 ML IV SCH (20:30)
[2020-05-07] MEDS: SINGULAIR TAB 10 MG PO SCH (20:31)
[2020-05-07] MEDS ORDERED: CHLORASEPTIC SPRAY MT PRN (21:49)
[2020-05-07] MEDS ORDERED: ZOFRAN INJ 4 MG VIAL ONE (22:06)
[2020-05-07] MEDS: ZOFRAN INJ 4 MG VIAL IVP PRN (22:27)
[2020-05-08] MEDS: ASCORBIC ACID INJ MULTI-DOSE VIAL 1,500 MG in NS 50 ML IV 50 ML IV SCH ×4 (02:19→20:53)
[2020-05-08] MEDS: SOLU-Medrol 125 MG VIAL IVP SCH ×4 (02:20→21:04)
[2020-05-08] MEDS ORDERED: NS 100 ML IV 100 ML IV ONE ×2 (03:53→20:17)
[2020-05-08] MEDS ORDERED: FORTAZ or TAZICEF VIAL INJ ONE (03:53)
[2020-05-08 04:27] LABS: ABG ALLEN TEST POSS; ABG BASE EXCESS -3.4 mmol/L (-2.0-2.0); ABG HCO3 18.9 mmol/L (22-26)
[2020-05-08] MEDS: TESSALON PERLES PO SCH ×3 (06:14→22:52)
[2020-05-08] MEDS: FORTAZ or TAZICEF VIAL INJ IV SCH ×3 (06:14→17:39)
[2020-05-08 06:23] LABS: BASOPHILS % (AUTO) 0.1 % (0.2-1.0); HEMATOCRIT 34.8 % (36.0-47.0); HEMOGLOBIN 11.8 g/dL (12.0-16.0); LYMPHOCYTES # (AUTO) 0.5 X10^3/uL (1.3-2.9); LYMPHOCYTES % (AUTO) 6.1 % (21.0-51.0); MEAN CORPUSCULAR HGB CONC 33.7 g/dL (33.0-35.0); MEAN CORPUSCULAR VOLUME 82.9 fL (80.0-100.0); MEAN PLATELET VOLUME 7.7 fL (7.4-11.0); MONOCYTES # (AUTO) 0.6 x10^3/uL (0.3-0.8); MONOCYTES % (AUTO) 7.8 % (0.0-13.0); NEUTROPHILS # (AUTO) 6.4 x10^3/uL (2.2-4.8); PLATELET COUNT 223 X10^3/uL (150.0-450.0); RED CELL DISTRIBUTION WIDTH 15.3 % (11.6-16.5); WHITE BLOOD COUNT 7.5 X10^3/uL (3.6-10.0)
[2020-05-08 06:33] LABS: ALANINE AMINOTRANSFERASE 21 Units/L (12-78); ALBUMIN 2.4 g/dL (3.4-5.0); ALKALINE PHOSPHATASE 56 Units/L (46-116); ASPARTATE AMINO TRANSFERASE 43 Units/L (15-37); BLOOD UREA NITROGEN 19 mg/dL (7-18); CALCIUM 8.6 mg/dL (8.5-10.1); CARBON DIOXIDE 18.9 mmol/L (21-32); CHLORIDE 111 mmol/L (98-107); COR CA(FOR HYPOALB) 9.9 mg/dL (8.5-10.1); COR NA(FOR HYPERGLY) 147 mmol/L (136-145); CREATININE 1.05 mg/dL (0.55-1.02); SODIUM 146 mmol/L (136-145); TOTAL PROTEIN 6.1 g/dL (6.4-8.2); eGFR NON BLACK RACES 55 (>60)
--- NOTE | 2020-05-08 07:13 | RAD ---
HISTORYSOBSTUDYCHEST, 1 VIEWCOMPARISONOne day prior.TECHNIQUEAP view of the chestFINDINGSPost median sternotomy and CABG. Cardiac and mediastinal contours are within normal limits. Mild improved appearance of bilateral airspace and interstitial opacities compared to prior. No definite pleural effusion or pneumothorax.IMPRESSIONMildly improved appearance compared to prior of bilateral pulmonary opacities.Electronically signed by: Geovanny Grubbs (May 08, 2020 07:11:58)
[2020-05-08] MEDS ORDERED: POTASSIUM CHL 40 MEQ/NS 0.45% 500 ML IV PRN (07:58)
[2020-05-08] MEDS ORDERED: K-RIDER 10 MEQ/NS 100 ML 10 MEQ/100 ML BAG IV PRN (07:58)
[2020-05-08] MEDS ORDERED: K-DUR TAB 20 MEQ PO PRN (07:58)
[2020-05-08] MEDS ORDERED: MICRO K EXTEN CAP 10 MEQ PO PRN (07:58)
[2020-05-08] MEDS ORDERED: MAGNESIUM SULFATE 1 GRAM/100 mL PREMIX 1 GM/100 ML BAG IV PRN (07:58)
[2020-05-08] MEDS ORDERED: POTASSIUM CHLORIDE LIQ 20 MEQ UDC PO PRN (07:58)
[2020-05-08] MEDS ORDERED: POTASSIUM CHL 60 MEQ/NS 0.45% 500 ML IV PRN (07:58)
[2020-05-08] MEDS: MUCOMYST 20% 200 MG/ML NEB SCH ×4 (09:24→20:24)
[2020-05-08] MEDS: ACCUNEB 1.25 MG NEBULE NEB SCH ×4 (09:24→20:24)
[2020-05-08] MEDS: PULMICORT NEB TX 0.5 MG NEB SCH ×2 (09:24→20:24)
[2020-05-08] MEDS: KLOR-CON PO PRN ×2 (11:35→22:51)
[2020-05-08] MEDS: ROBITUSSIN DM PO SCH ×4 (11:37→21:08)
[2020-05-08] MEDS: NS 1/2 1000 ML IV 1,000 ML IV SCH ×2 (11:37→19:30)
[2020-05-08] MEDS: LOVENOX INJ 60 MG SYR SC SCH ×2 (11:38→20:54)
[2020-05-08] MEDS: ZyrTEC TAB 10 MG PO SCH (11:38)
[2020-05-08] MEDS: ZINC SULFATE PO SCH (11:39)
[2020-05-08] MEDS: THEO-DUR TAB 300 MG 12-HR PO SCH ×2 (11:39→20:55)
[2020-05-08] MEDS: VITAMIN D3 125 mcg (5,000 UNITS) PO SCH (11:39)
[2020-05-08] MEDS: THIAMINE HCL INJ IVP SCH ×2 (11:40→21:07)
[2020-05-08] MEDS: PROTONIX INJ 40 MG VIAL IVP SCH (11:40)
[2020-05-08] MEDS: PEPCID 20 MG IV PREMIX* 20 MG/50 ML BAG IV SCH (11:42)
[2020-05-08] MEDS: MILK OF MAGNESIA PO SCH (11:42)
[2020-05-08] MEDS: MOBIC TAB 15 MG PO SCH (11:42)
[2020-05-08] MEDS: LIPITOR TAB 20 MG PO SCH (11:43)
[2020-05-08] MEDS: LOPRESSOR TAB 25 MG PO SCH (11:43)
[2020-05-08] MEDS: LEVAQUIN PREMIX IV 500 MG 500 MG/100 ML BAG IV SCH (11:43)
[2020-05-08] MEDS: FOLIC ACID TAB 1 MG PO SCH (11:44)
[2020-05-08] MEDS: DIFLUCAN PO SCH (11:44)
[2020-05-08] MEDS: HumuLIN R SUBCUT PRN ×2 (13:00→22:53)
[2020-05-08] MEDS ORDERED: MILK OF MAGNESIA PO PRN (17:31)
[2020-05-08] MEDS: SNACK - Diabetic Appropriate PO SCH (20:30)
[2020-05-08] MEDS: MELATONIN PO SCH (20:54)
[2020-05-08] MEDS: SINGULAIR TAB 10 MG PO SCH (20:55)
--- NOTE | 2020-05-08 22:30 | PCM.PROG ---
Progress Note - Progress Note for Day of Date of Exam: 05/08/20 - Subjective Subjective: IS BEING TREATED FOR PNEUMONIA DUE TO COVID-19, HYPOXIA, AND BACTERIAL ENTERITIS. TODAY, SHE CONTINUES WITH COMPLAINTS OF COUGH, SHORTNESS OF BREATH, AND WEAKNESS. SHE DENIES DIARRHEA THIS MORNING. SHE REMAINS ON NASAL CANNULA AT 5-6 LITERS/MINUTE. HER SATURATIONS HAVE BEEN 90-95% THIS MORNING AND THROUGHOUT THE NIGHT. ON EXAMINATION, HEART IS REGULAR IN RATE AND RHYTHM. BILATERAL LUNGS ARE NOTED WITH RALES THROUGHOUT. ABDOMEN IS ROUND, SOFT, AND NON-TENDER WITH NORMAL BOWEL SOUNDS NOTED IN ALL QUADRANTS. HER VITALS THIS MORNING ARE: 98.6-74-20-94%NC-122/58. LABS WERE OBTAINED. ABNORMAL LAB VALUES INCLUDE THE FOLLOWING: HGB 11.8, HCT 34.8, D-DIMER 2.98, SODIUM 146, POTASSIUM 3.0, CHLORIDE 111, CARBON DIOXIDE 18.9, BUN 19, CREATININE 1.05, GLUCSOE 161, FERRITIN 1289, AST 43, CRP 14.70, BNP 208, TOTAL PROTEIN 6.1, ALBUMIN 2.4. BLOOD CULTURES ARE PENDING. ABG WAS OBTAINED AND REVEALED: PH 7.470, PC02 26, P02 63, HC03 18.9, 02 SAT 93, A-A GRADIENT 218, FI02 44. A CHEST XRAY WAS OBTAINED AND REVEALED: Mildly improved appearance compared to prior of bilateral pulmonary opacities. SHE IS CURRENTLY RECEIVING NS AT 75ML/HR, REMDESIVIR 100MG IV DAILY, LEVAQUIN 500MG IV DAILY, FORTAZ 1G IV Q8H, ASCORBIC ACID 1500MG IV Q6H, PULMICORT NEB TX BID, ALBUTEROL NEB TX QID, MUCOMYST IN NEBS QID, XANAX 0.5MG PO DAILY PRN, LIPITOR 20MG PO DAILY, TESSALON PERLES TID, TUSSIONEX 5ML PO Q12H PRN, ROBITUSSIN DM 10ML PO QID, DIFLUCAN 100MG PO DAILY, FOLIC ACID 1MG PO DAILY, NORCO 5/325MG PO Q8H PRN, IVERMECTIN, PHARMACY TO DOSE, MAGIC MOUTHWASH QID, MILK OF MAG 30ML PO BID, MELATONIN 10MG PO HS, MOBIC 15MG PO DAILY, SOLU- MEDROL 125MG IV Q6H, LOPRESSOR 25MG PO DAILY, SINGULAIR 10MG PO HS, PROTONIX 40MG IV DAILY, THEOPHYLLINE 300MG PO BID, THIAMINE 200MG IV BID, ZINC SULFATE 220MG PO DAILY, LOVENOX 40MG SC DAILY, ZYRTEC 10MG PO HS, VITAMIN D3 DAILY, PEPCID 20MG IV DAILY. WE WILL CONTINUE WITH CURRENT PLAN OF CARE TODAY. OTHERWISE, WE PLAN TO FOLLOW UP WITH AM LABS, CHEST XRAY, ABG, AND CONTINUE TO MONITOR. TIME SPENT ON CLINICAL ASSESSMENT, REVIEWING LABS AND IMAGING, DECISION MAKING, AND DOCUMENTATION GREATER THAN 75 MINUTES - Past Medical Family Social History Past Med/Fam/Surg Hx: No changes since H&P Allergies: Allergies aspartame [From Nutrasweet Aspartame] Allergy (Verified 05/07/20 17:09) Sulfa (Sulfonamide Antibiotics) Allergy (Verified 02/09/17 17:13) - Review of Systems ROS: No change since H&P - Vital Signs and I&O's Vital Signs: Temperature 98.1 F Pulse Rate [Left Brachial] 67 Pulse Rate 78 Respiratory Rate 22 Blood Pressure [Left Arm] 120/58 Blood Pressure 132/63 O2 Sat by Pulse Oximetry 94 Intake and Output: Intake & Output 05/06/20 05/07/20 05/08/20 05/09/20 11:59 11:59 11:59 11:59 Intake Total 540 / 540 3954 / 3954 460 / 460 Balance 540 / 540 3954 / 3954 460 / 460 - Physical Exam Oriented: Normal Eyes: Normal Ear: Normal Nose: Normal Respiratory: Generalized, Diminished Cardiovascular: Normal : Normal Auscultation: Bowel Sounds: Normal Palpation: Normal Tenderness: Normal Skin: Normal Musculoskeletal: Normal Psychiatric: Normal Mood Description: Calm Affect: Normal Speech Pattern: Clear, Appropriate - Laboratory and Diagnostics Result Diagrams: 05/08/20 05:10 05/08/20 17:00 Labs: 05/06/20 15:40 Stool Stool Culture - Final 05/06/20 15:40 Stool - Final Laboratory WBC 7.5 X10^3/uL (3.6-10.0) 05/08/20 05:10 RBC 4.20 X10^6/uL (3.5-5.4) 05/08/20 05:10 Hgb 11.8 g/dL (12.0-16.0) L 05/08/20 05:10 Hct 34.8 % (36.0-47.0) L 05/08/20 05:10 MCV 82.9 fL (80.0-100.0) 05/08/20 05:10 MCH 28.0 pg (27.0-34.0) 05/08/20 05:10 MCHC 33.7 g/dL (33.0-35.0) 05/08/20 05:10 RDW 15.3 % (11.6-16.5) 05/08/20 05:10 Plt Count 223 X10^3/uL (150.0-450.0) 05/08/20 05:10 MPV 7.7 fL (7.4-11.0) 05/08/20 05:10 Neut % (Auto) 86.0 % (42.0-75.0) H 05/08/20 05:10 Lymph % (Auto) 6.1 % (21.0-51.0) L 05/08/20 05:10 [place] % (Auto) 7.8 % (0.0-13.0) 05/08/20 05:10 Eos % (Auto) 0.0 % (0.9-2.9) L 05/08/20 05:10 Baso % (Auto) 0.1 % (0.2-1.0) L 05/08/20 05:10 Neut # (Auto) 6.4 x10^3/uL (2.2-4.8) H 05/08/20 05:10 Lymph # (Auto) 0.5 X10^3/uL (1.3-2.9) L 05/08/20 05:10 [place] # (Auto) 0.6 x10^3/uL (0.3-0.8) 05/08/20 05:10 Eos # (Auto) 0.0 x10^3/uL (0.0-0.2) 05/08/20 05:10 Baso # (Auto) 0.0 X10^3/uL (0.0-0.1) 05/08/20 05:10 Absolute Nucleated RBC 0.1 /100WBC 05/08/20 05:10 D-Dimer 2.98 ug/ml (0.0-0.57) H* 05/08/20 05:10 Sample Site R rad 05/08/20 04:20 ABG pH 7.470 (7.35-7.45) H 05/08/20 04:20 ABG pCO2 26.0 mmHg (35.0-45.0) L 05/08/20 04:20 ABG pO2 63.0 mmHg (80.0-100.0) L 05/08/20 04:20 ABG HCO3 18.9 mmol/L (22-26) L 05/08/20 04:20 ABG O2 Saturation 93.0 % (90-100) 05/08/20 04:20 ABG Base Excess -3.4 mmol/L (-2.0-2.0) L 05/08/20 04:20 Nicolas Test Poss 05/08/20 04:20 A-a Gradient 218.0 mmHg 05/08/20 04:20 FiO2 44.0 05/08/20 04:20 Blood Gas Comments Amanda well kb 05/08/20 04:20 Sodium 146 mmol/L (136-145) H 05/08/20 05:10 Corrected Sodium 147 mmol/L (136-145) H 05/08/20 05:10 Potassium 3.1 mmol/L (3.5-5.1) L 05/08/20 17:00 Chloride 111 mmol/L (98-107) H 05/08/20 05:10 Carbon Dioxide 18.9 mmol/L (21-32) L 05/08/20 05:10 BUN 19 mg/dL (7-18) H 05/08/20 05:10 Creatinine 1.05 mg/dL (0.55-1.02) H 05/08/20 05:10 Est GFR (MDRD) Af Amer > 60 (>60) 05/08/20 05:10 Est GFR (MDRD) Non-Af 55 (>60) L 05/08/20 05:10 Glucose 161 mg/dL (65-99) H 05/08/20 05:10 POC Glucose (mg/dL) 168 mg/dL (65-99) H 05/08/20 22:23 Calcium 8.6 mg/dL (8.5-10.1) 05/08/20 05:10 Corrected Calcium 9.9 mg/dL (8.5-10.1) 05/08/20 05:10 Magnesium 2.3 mg/dL (1.7-2.9) 05/08/20 04:20 Ferritin 1289 ng/mL (8-252) H 05/08/20 05:10 Total Bilirubin 0.30 mg/dL (0.2-1.0) 05/08/20 05:10 AST 43 Units/L (15-37) H 05/08/20 05:10 ALT 21 Units/L (12-78) 05/08/20 05:10 Alkaline Phosphatase 56 Units/L (46-116) 05/08/20 05:10 C-Reactive Protein 14.70 mg/L (0-3.0) H 05/08/20 05:10 B-Natriuretic Peptide 208 pg/mL (0-79) H 05/08/20 05:10 Total Protein 6.1 g/dL (6.4-8.2) L 05/08/20 05:10 Albumin 2.4 g/dL (3.4-5.0) L 05/08/20 05:10 Globulin 3.7 g/dL (2.5-4.5) 05/08/20 05:10 Albumin/Globulin Ratio 0.6 Ratio (1.1-2.1) L 05/08/20 05:10 Amylase 49 Units/L (25-115) 05/06/20 14:10 Lipase 224 Units/L (73-393) 05/06/20 14:10 Specimen Type Random urine 05/06/20 14:14 Urine Color Yellow (YELLOW) 05/06/20 14:14 Urine Appearance Hazy (CLEAR) 05/06/20 14:14 Urine pH 6.0 (5.0 - 8.0) 05/06/20 14:14 Ur Specific [place] 1.025 (1.000-1.030) 05/06/20 14:14 Urine Protein 3+ (NEGATIVE) 05/06/20 14:14 Urine Glucose (UA) Negative (NEGATIVE) 05/06/20 14:14 Urine Ketones Negative (NEGATIVE) 05/06/20 14:14 Urine Occult Blood 1+ (NEGATIVE) 05/06/20 14:14 Urine Nitrite Positive (NEGATIVE) 05/06/20 14:14 Urine Bilirubin Negative (NEGATIVE) 05/06/20 14:14 Urine Urobilinogen Normal (NORMAL) 05/06/20 14:14 Ur Leukocyte Esterase 1+ (NEGATIVE) 05/06/20 14:14 Urine RBC 3-5 /HPF (0-3) A 05/06/20 14:14 Urine WBC 0-2 /HPF (0-5) 05/06/20 14:14 Ur Squamous Epith Cells Few /HPF (NEGATIVE) 05/06/20 14:14 Urine Bacteria 1+ /HPF (NEGATIVE) 05/06/20 14:14 Fine Granular Casts Few /LPF (NEGATIVE) 05/06/20 14:14 Ur Culture Indicated? No/not indicated 05/06/20 14:14 Stool for White Cells Positive (NEGATIVE) A 05/06/20 15:40 SARS CoV-2 RNA Rapid KEVAN Positive (NEGATIVE) A 05/06/20 15:28 Blood Type O POSITIVE 05/06/20 20:25 - Plan (1) Pneumonia due to COVID-19 virus Status: Acute Plan: SUPPLEMENTAL OXYGEN, NS AT 75ML/HR, REMDESIVIR 100MG IV DAILY, ACTEMRA 400MG IV X 1 DOSE, LEVAQUIN 500MG IV DAILY, FORTAZ 1G IV Q8H, ASCORBIC ACID 1500MG IV Q6H, PULMICORT NEB TX BID, ALBUTEROL NEB TX QID, MUCOMYST IN NEBS QID, XANAX 0.5MG PO DAILY PRN, LIPITOR 20MG PO DAILY, TESSALON PERLES TID, TUSSIONEX 5ML PO Q12H PRN, ROBITUSSIN DM 10ML PO QID, DIFLUCAN 100MG PO DAILY, FOLIC ACID 1MG PO DAILY, NORCO 5/325MG PO Q8H PRN, IVERMECTIN, PHARMACY TO DOSE, MAGIC MOUTHWASH QID, MILK OF MAG 30ML PO BID, MELATONIN 10MG PO HS, MOBIC 15MG PO DAILY, SOLU-MEDROL 125MG IV Q6H, LOPRESSOR 25MG PO DAILY, SINGULAIR 10MG PO HS, PROTONIX 40MG IV DAILY, THEOPHYLLINE 300MG PO BID, THIAMINE 200MG IV BID, ZINC SULFATE 220MG PO DAILY, LOVENOX 40MG SC DAILY, ZYRTEC 10MG PO HS, VITAMIN D3 DAILY, PEPCID 20MG IV DAILY. OBTAIN ECHO (2) Hypoxia Status: Acute (3) Bacterial enteritis, unspecified Status: Acute
[2020-05-08] MEDS: REMDESIVIR 100 MG in NS 250 ML IV 250 ML IV SCH (22:51)
[2020-05-09] MEDS: FORTAZ or TAZICEF VIAL INJ IV SCH ×3 (00:04→22:40)
[2020-05-09] MEDS: NS 1/2 1000 ML IV 1,000 ML IV SCH ×3 (00:07→16:39)
[2020-05-09] MEDS ORDERED: NS 1/2 1000 ML IV 1,000 ML IV ONE ×2 (01:37→18:19)
[2020-05-09] MEDS: SOLU-Medrol 125 MG VIAL IVP SCH ×4 (02:46→22:01)
[2020-05-09] MEDS: ASCORBIC ACID INJ MULTI-DOSE VIAL 1,500 MG in NS 50 ML IV 50 ML IV SCH ×4 (02:47→22:00)
[2020-05-09 04:06] LABS: BASOPHILS % (AUTO) 0.1 % (0.2-1.0); HEMATOCRIT 37.5 % (36.0-47.0); HEMOGLOBIN 12.2 g/dL (12.0-16.0); LYMPHOCYTES # (AUTO) 0.3 X10^3/uL (1.3-2.9); LYMPHOCYTES % (AUTO) 2.3 % (21.0-51.0); MEAN CORPUSCULAR HEMOGLOBIN 27.2 pg (27.0-34.0); MEAN CORPUSCULAR HGB CONC 32.5 g/dL (33.0-35.0); MEAN CORPUSCULAR VOLUME 83.9 fL (80.0-100.0); MEAN PLATELET VOLUME 7.4 fL (7.4-11.0); NEUTROPHILS # (AUTO) 12.6 x10^3/uL (2.2-4.8); NEUTROPHILS % (AUTO) 90.6 % (42.0-75.0); PLATELET COUNT 291 X10^3/uL (150.0-450.0); RED BLOOD COUNT 4.47 X10^6/uL (3.5-5.4); RED CELL DISTRIBUTION WIDTH 15.2 % (11.6-16.5); WHITE BLOOD COUNT 13.9 X10^3/uL (3.6-10.0)
[2020-05-09 04:09] LABS: ALANINE AMINOTRANSFERASE 25 Units/L (12-78); ALBUMIN 2.5 g/dL (3.4-5.0); ALKALINE PHOSPHATASE 60 Units/L (46-116); ASPARTATE AMINO TRANSFERASE 33 Units/L (15-37); BLOOD UREA NITROGEN 14 mg/dL (7-18); CALCIUM 8.4 mg/dL (8.5-10.1); CARBON DIOXIDE 17.7 mmol/L (21-32); CHLORIDE 114 mmol/L (98-107); COR CA(FOR HYPOALB) 9.6 mg/dL (8.5-10.1); COR NA(FOR HYPERGLY) 150 mmol/L (136-145); CREATININE 1.11 mg/dL (0.55-1.02); SODIUM 149 mmol/L (136-145); eGFR NON BLACK RACES 52 (>60)
[2020-05-09 04:27] LABS: PLATELET MORPHOLOGY COMMENT NORMAL (NORMAL)
[2020-05-09 04:32] LABS: ABG BASE EXCESS -5.2 mmol/L (-2.0-2.0)
[2020-05-09 04:33] LABS: ABG ALLEN TEST POS; ABG HCO3 16.7 mmol/L (22-26)
[2020-05-09] MEDS ORDERED: NS 100 ML IV 100 ML IV ONE ×2 (05:17→21:00)
[2020-05-09] MEDS: TESSALON PERLES PO SCH ×3 (05:33→22:14)
--- NOTE | 2020-05-09 07:12 | RAD ---
HISTORYSOBSTUDYCHEST, 1 VIEWCOMPARISONOne day prior.TECHNIQUEAP view of the chestFINDINGSStatus post median sternotomy and CABG.The cardiac and mediastinal contours appear stable. No significant change in bilateral interstitial opacities. No definite pleural effusion or pneumothorax.IMPRESSIONNo significant change.Electronically signed by: Geovanny Grubbs (May 09, 2020 07:10:40)
[2020-05-09] MEDS: PULMICORT NEB TX 0.5 MG NEB SCH ×2 (08:10→21:00)
[2020-05-09] MEDS: MUCOMYST 20% 200 MG/ML NEB SCH ×4 (08:10→21:00)
[2020-05-09] MEDS: ACCUNEB 1.25 MG NEBULE NEB SCH ×4 (08:10→21:00)
[2020-05-09] MEDS: LOVENOX INJ 60 MG SYR SC SCH (09:58)
[2020-05-09] MEDS: ROBITUSSIN DM PO SCH ×4 (09:58→23:45)
[2020-05-09] MEDS: THEO-DUR TAB 300 MG 12-HR PO SCH ×2 (10:00→22:12)
[2020-05-09] MEDS: PEPCID 20 MG IV PREMIX* 20 MG/50 ML BAG IV SCH (10:01)
[2020-05-09] MEDS: VITAMIN D3 125 mcg (5,000 UNITS) PO SCH (10:01)
[2020-05-09] MEDS: DIFLUCAN PO SCH (10:01)
[2020-05-09] MEDS: LOPRESSOR TAB 25 MG PO SCH (10:01)
[2020-05-09] MEDS: MOBIC TAB 15 MG PO SCH (10:02)
[2020-05-09] MEDS: LIPITOR TAB 20 MG PO SCH (10:02)
[2020-05-09] MEDS: PROTONIX INJ 40 MG VIAL IVP SCH (10:02)
[2020-05-09] MEDS: ZINC SULFATE PO SCH (10:02)
[2020-05-09] MEDS: FOLIC ACID TAB 1 MG PO SCH (10:03)
[2020-05-09] MEDS: ZyrTEC TAB 10 MG PO SCH (10:03)
[2020-05-09] MEDS ORDERED: BUTT CREAM (COMPOUND) TOP PRN (11:02)
[2020-05-09] MEDS: THIAMINE HCL INJ IVP SCH (11:44)
--- NOTE | 2020-05-09 12:18 | PCM.PROG ---
Progress Note - Progress Note for Day of Date of Exam: 05/09/20 - Subjective Subjective: IS BEING TREATED FOR PNEUMONIA DUE TO COVID-19, HYPOXIA, AND BACTERIAL ENTERITIS. TODAY, SHE CONTINUES WITH COMPLAINTS OF COUGH, SHORTNESS OF BREATH, AND WEAKNESS. SHE DENIES DIARRHEA THIS MORNING. SHE REMAINS ON NASAL CANNULA AT 2 LITERS/MINUTE. HER SATURATIONS HAVE BEEN 90-94% THIS MORNING AND THROUGHOUT THE NIGHT. ON EXAMINATION, HEART IS REGULAR IN RATE AND RHYTHM. BILATERAL LUNGS ARE NOTED WITH RALES THROUGHOUT. ABDOMEN IS ROUND, SOFT, AND NON-TENDER WITH NORMAL BOWEL SOUNDS NOTED IN ALL QUADRANTS. HER VITALS THIS MORNING ARE: 97.9-91-30-91%-140/65. LABS WERE OBTAINED. ABNORMAL LAB VALUES INCLUDE THE FOLLOWING: WBC 13.9, D-DIMER 3.67, SODIUM 149, CHLORIDE 114, CARBON 17.7, CREATININE 1.11, GLUCOSE 150, CALCIUM 8.4, FERRITIN 971, CRP 5.00, BNP 303, TOTAL PROTEIN 6.0, ALBUMIN 2.5. BLOOD CULTURES ARE PENDING. ABG WAS OBTAINED AND REVEALED: PH 7.470, PC02 23.0, P02 55, HC03 16.7, 02 SAT 90, BASE EXCESS -5.2, A-A GRADIENT 116, FI02 28. A CHEST XRAY WAS OBTAINED AND REVEALED: Status post median sternotomy and CABG.The cardiac and mediastinal contours appear stable. No significant change in bilateral interstitial opacities. No definite pleural effusion or pneumothorax. SHE IS CURRENTLY RECEIVING NS AT 75ML/HR, REMDESIVIR 100MG IV DAILY, LEVAQUIN 500MG IV DAILY, FORTAZ 1G IV Q8H, ASCORBIC ACID 1500MG IV Q6H, PULMICORT NEB TX BID, ALBUTEROL NEB TX QID, MUCOMYST IN NEBS QID, XANAX 0.5MG PO DAILY PRN, LIPITOR 20MG PO DAILY, TESSALON PERLES TID, TUSSIONEX 5ML PO Q12H PRN, ROBITUSSIN DM 10ML PO QID, DIFLUCAN 100MG PO DAILY, FOLIC ACID 1MG PO DAILY, NORCO 5/325MG PO Q8H PRN, IVERMECTIN, PHARMACY TO DOSE, MAGIC MOUTHWASH QID, MILK OF MAG 30ML PO BID, MELATONIN 10MG PO HS, MOBIC 15MG PO DAILY, SOLU-MEDROL 125MG IV Q6H, LOPRESSOR 25MG PO DAILY, SINGULAIR 10MG PO HS, PROTONIX 40MG IV DAILY, THEOPHYLLINE 300MG PO BID, THIAMINE 200MG IV BID, ZINC SULFATE 220MG PO DAILY, LOVENOX 40MG SC DAILY, ZYRTEC 10MG PO HS, VITAMIN D3 DAILY, PEPCID 20MG IV DAILY. TODAY, WE WILL DISCONTINUE THE LOVENOX AND START ELIQUIS 5MG PO BID. OTHERWISE, WE WILL CONTINUE WITH CURRENT PLAN OF CARE TODAY. WE PLAN TO FOLLOW UP WITH AM LABS, CHEST XRAY, ABG, AND CONTINUE TO MONITOR. TIME SPENT ON CLINICAL ASSESSMENT, REVIEWING LABS AND IMAGING, DECISION MAKING, AND DOCUMENTATION GREATER THAN 75 MINUTES. - Past Medical Family Social History Past Med/Fam/Surg Hx: No changes since H&P Allergies: Allergies aspartame [From Nutrasweet Aspartame] Allergy (Verified 05/07/20 17:09) Sulfa (Sulfonamide Antibiotics) Allergy (Verified 02/09/17 17:13) - Review of Systems ROS: No change since H&P - Vital Signs and I&O's Vital Signs: Temperature 97.6 F Pulse Rate [Left Brachial] 73 Pulse Rate 75 Respiratory Rate 22 Blood Pressure [Left Arm] 146/66 Blood Pressure 132/63 O2 Sat by Pulse Oximetry 96 Intake and Output: Intake & Output 05/07/20 05/08/20 05/09/20 05/10/20 11:59 11:59 11:59 11:59 Intake Total 540 / 540 3954 / 3954 2685 / 2685 Balance 540 / 540 3954 / 3954 2685 / 2685 - Physical Exam Oriented: Normal Eyes: Normal Ear: Normal Nose: Normal Respiratory: Generalized, Diminished Cardiovascular: Normal : Normal Auscultation: Bowel Sounds: Normal Palpation: Normal Tenderness: Normal Skin: Normal Musculoskeletal: Normal Psychiatric: Normal Mood Description: Calm Affect: Normal Speech Pattern: Clear, Appropriate - Laboratory and Diagnostics Result Diagrams: 05/09/20 03:42 05/09/20 03:42 Labs: 05/06/20 15:40 Stool Stool Culture - Final 05/06/20 15:40 Stool - Final Laboratory WBC 13.9 X10^3/uL (3.6-10.0) H 05/09/20 03:42 RBC 4.47 X10^6/uL (3.5-5.4) 05/09/20 03:42 Hgb 12.2 g/dL (12.0-16.0) 05/09/20 03:42 Hct 37.5 % (36.0-47.0) 05/09/20 03:42 MCV 83.9 fL (80.0-100.0) 05/09/20 03:42 MCH 27.2 pg (27.0-34.0) 05/09/20 03:42 MCHC 32.5 g/dL (33.0-35.0) L 05/09/20 03:42 RDW 15.2 % (11.6-16.5) 05/09/20 03:42 Plt Count 291 X10^3/uL (150.0-450.0) 05/09/20 03:42 Plt Count Comment Adequate (ADEQUATE) 05/09/20 03:42 MPV 7.4 fL (7.4-11.0) 05/09/20 03:42 Neut % (Auto) 90.6 % (42.0-75.0) H 05/09/20 03:42 Lymph % (Auto) 2.3 % (21.0-51.0) L 05/09/20 03:42 [place] % (Auto) 7.0 % (0.0-13.0) 05/09/20 03:42 Eos % (Auto) 0.0 % (0.9-2.9) L 05/09/20 03:42 Baso % (Auto) 0.1 % (0.2-1.0) L 05/09/20 03:42 Neut # (Auto) 12.6 x10^3/uL (2.2-4.8) H 05/09/20 03:42 Lymph # (Auto) 0.3 X10^3/uL (1.3-2.9) L 05/09/20 03:42 [place] # (Auto) 1.0 x10^3/uL (0.3-0.8) H 05/09/20 03:42 Eos # (Auto) 0.0 x10^3/uL (0.0-0.2) 05/09/20 03:42 Baso # (Auto) 0.0 X10^3/uL (0.0-0.1) 05/09/20 03:42 Absolute Nucleated RBC 0.1 /100WBC 05/09/20 03:42 Total Counted 100 05/09/20 03:42 Neutrophils % (Manual) 92 % (39-76) H 05/09/20 03:42 Lymphocytes % (Manual) 6 % (13-43) L 05/09/20 03:42 Monocytes % (Manual) 2 % (4-9) L 05/09/20 03:42 Plt Morphology Comment Normal (NORMAL) 05/09/20 03:42 RBC Morphology Normal (NORMAL) 05/09/20 03:42 D-Dimer 3.67 ug/ml (0.0-0.57) H* 05/09/20 03:42 Sample Site Rr 05/09/20 04:25 ABG pH 7.470 (7.35-7.45) H 05/09/20 04:25 ABG pCO2 23.0 mmHg (35.0-45.0) L 05/09/20 04:25 ABG pO2 55.0 mmHg (80.0-100.0) L 05/09/20 04:25 ABG HCO3 16.7 mmol/L (22-26) L* 05/09/20 04:25 ABG O2 Saturation 90.0 % (90-100) 05/09/20 04:25 ABG Base Excess -5.2 mmol/L (-2.0-2.0) L 05/09/20 04:25 Nicolas Test Pos 05/09/20 04:25 A-a Gradient 116.0 mmHg 05/09/20 04:25 FiO2 28.0 05/09/20 04:25 Blood Gas Comments Amanda well, kh 05/09/20 04:25 Sodium 149 mmol/L (136-145) H 05/09/20 03:42 Corrected Sodium 150 mmol/L (136-145) H 05/09/20 03:42 Potassium 3.7 mmol/L (3.5-5.1) 05/09/20 03:42 Potassium Cancelled 05/09/20 03:42 Chloride 114 mmol/L (98-107) H 05/09/20 03:42 Carbon Dioxide 17.7 mmol/L (21-32) L 05/09/20 03:42 BUN 14 mg/dL (7-18) 05/09/20 03:42 Creatinine 1.11 mg/dL (0.55-1.02) H 05/09/20 03:42 Est GFR (MDRD) Af Amer > 60 (>60) 05/09/20 03:42 Est GFR (MDRD) Non-Af 52 (>60) L 05/09/20 03:42 Glucose 150 mg/dL (65-99) H 05/09/20 03:42 POC Glucose (mg/dL) 133 mg/dL (65-99) H 05/09/20 12:02 Calcium 8.4 mg/dL (8.5-10.1) L 05/09/20 03:42 Corrected Calcium 9.6 mg/dL (8.5-10.1) 05/09/20 03:42 Magnesium 2.2 mg/dL (1.7-2.9) 05/09/20 00:47 Ferritin 971 ng/mL (8-252) H 05/09/20 03:42 Total Bilirubin 0.30 mg/dL (0.2-1.0) 05/09/20 03:42 AST 33 Units/L (15-37) 05/09/20 03:42 ALT 25 Units/L (12-78) 05/09/20 03:42 Alkaline Phosphatase 60 Units/L (46-116) 05/09/20 03:42 C-Reactive Protein 5.00 mg/L (0-3.0) H 05/09/20 03:42 B-Natriuretic Peptide 303 pg/mL (0-79) H 05/09/20 03:42 Total Protein 6.0 g/dL (6.4-8.2) L 05/09/20 03:42 Albumin 2.5 g/dL (3.4-5.0) L 05/09/20 03:42 Globulin 3.5 g/dL (2.5-4.5) 05/09/20 03:42 Albumin/Globulin Ratio 0.7 Ratio (1.1-2.1) L 05/09/20 03:42 Amylase 49 Units/L (25-115) 05/06/20 14:10 Lipase 224 Units/L (73-393) 05/06/20 14:10 Specimen Type Random urine 05/06/20 14:14 Urine Color Yellow (YELLOW) 05/06/20 14:14 Urine Appearance Hazy (CLEAR) 05/06/20 14:14 Urine pH 6.0 (5.0 - 8.0) 05/06/20 14:14 Ur Specific [place] 1.025 (1.000-1.030) 05/06/20 14:14 Urine Protein 3+ (NEGATIVE) 05/06/20 14:14 Urine Glucose (UA) Negative (NEGATIVE) 05/06/20 14:14 Urine Ketones Negative (NEGATIVE) 05/06/20 14:14 Urine Occult Blood 1+ (NEGATIVE) 05/06/20 14:14 Urine Nitrite Positive (NEGATIVE) 05/06/20 14:14 Urine Bilirubin Negative (NEGATIVE) 05/06/20 14:14 Urine Urobilinogen Normal (NORMAL) 05/06/20 14:14 Ur Leukocyte Esterase 1+ (NEGATIVE) 05/06/20 14:14 Urine RBC 3-5 /HPF (0-3) A 05/06/20 14:14 Urine WBC 0-2 /HPF (0-5) 05/06/20 14:14 Ur Squamous Epith Cells Few /HPF (NEGATIVE) 05/06/20 14:14 Urine Bacteria 1+ /HPF (NEGATIVE) 05/06/20 14:14 Fine Granular Casts Few /LPF (NEGATIVE) 05/06/20 14:14 Ur Culture Indicated? No/not indicated 05/06/20 14:14 Stool for White Cells Positive (NEGATIVE) A 05/06/20 15:40 SARS CoV-2 RNA Rapid KEVAN Positive (NEGATIVE) A 05/06/20 15:28 Blood Type O POSITIVE 05/06/20 20:25 - Plan (1) Pneumonia due to COVID-19 virus Status: Acute Plan: SUPPLEMENTAL OXYGEN, NS AT 75ML/HR, REMDESIVIR 100MG IV DAILY, LEVAQUIN 500MG IV DAILY, FORTAZ 1G IV Q8H, ASCORBIC ACID 1500MG IV Q6H, PULMICORT NEB TX BID, ALBUTEROL NEB TX QID, MUCOMYST IN NEBS QID, XANAX 0.5MG PO DAILY PRN, LIPITOR 20MG PO DAILY, TESSALON PERLES TID, TUSSIONEX 5ML PO Q12H PRN, ROBITUSSIN DM 10ML PO QID, DIFLUCAN 100MG PO DAILY, FOLIC ACID 1MG PO DAILY, NORCO 5/325MG PO Q8H PRN, IVERMECTIN, PHARMACY TO DOSE, MAGIC MOUTHWASH QID, MILK OF MAG 30ML PO BID, MELATONIN 10MG PO HS, MOBIC 15MG PO DAILY, SOLU-MEDROL 125MG IV Q6H, LOPRESSOR 25MG PO DAILY, SINGULAIR 10MG PO HS, PROTONIX 40MG IV DAILY, THEOPHYLLINE 300MG PO BID, THIAMINE 200MG IV BID, ZINC SULFATE 220MG PO DAILY, ELIQUIS 5MG PO BID, ZYRTEC 10MG PO HS, VITAMIN D3 DAILY, PEPCID 20MG IV DAILY. OBTAIN ECHO (2) Hypoxia Status: Acute (3) Bacterial enteritis, unspecified Status: Acute
[2020-05-09] MEDS: ZOFRAN INJ 4 MG VIAL IVP PRN (18:39)
[2020-05-09] MEDS: MAGIC MOUTHWASH MT PRN (19:29)
[2020-05-09] MEDS: SNACK - Diabetic Appropriate PO SCH (19:30)
[2020-05-09] MEDS: SINGULAIR TAB 10 MG PO SCH (22:13)
[2020-05-09] MEDS: MELATONIN PO SCH (22:13)
[2020-05-09] MEDS: ELIQUIS PO SCH (22:14)
[2020-05-09] MEDS: IVERMECTIN PO SCH (22:15)
[2020-05-09] MEDS: REMDESIVIR 100 MG in NS 250 ML IV 250 ML IV SCH (23:53)
[2020-05-10] MEDS: SOLU-Medrol 125 MG VIAL IVP SCH ×2 (03:09→10:29)
[2020-05-10] MEDS: ASCORBIC ACID INJ MULTI-DOSE VIAL 1,500 MG in NS 50 ML IV 50 ML IV SCH ×2 (03:12→10:21)
[2020-05-10] MEDS: NS 1/2 1000 ML IV 1,000 ML IV SCH (03:15)
[2020-05-10 04:04] LABS: ABG BASE EXCESS 0.9 mmol/L (-2.0-2.0); ABG HCO3 22.6 mmol/L (22-26)
[2020-05-10] MEDS: TESSALON PERLES PO SCH (05:42)
[2020-05-10] MEDS: MAGIC MOUTHWASH MT PRN (05:44)
--- NOTE | 2020-05-10 06:18 | RAD ---
HISTORYSOBSTUDYCHEST, 1 VIEWCOMPARISONOne day prior.TECHNIQUEAP view of the chestFINDINGSPost median sternotomy and CABG. Cardiac and mediastinal contours are within normal limits. No significant change in bilateral airspace and interstitial opacities. No definite pleural effusion or pneumothorax. Soft tissue attenuation limits evaluation.IMPRESSIONNo significant change.Electronically signed by: Geovanny Grubbs (May 10, 2020 06:17:28)
[2020-05-10 06:48] LABS: BASOPHILS % (AUTO) 0.1 % (0.2-1.0); HEMATOCRIT 35.8 % (36.0-47.0); HEMOGLOBIN 12.3 g/dL (12.0-16.0); LYMPHOCYTES # (AUTO) 0.4 X10^3/uL (1.3-2.9); LYMPHOCYTES % (AUTO) 3.3 % (21.0-51.0); MEAN CORPUSCULAR HEMOGLOBIN 27.9 pg (27.0-34.0); MEAN CORPUSCULAR HGB CONC 34.4 g/dL (33.0-35.0); MONOCYTES # (AUTO) 0.6 x10^3/uL (0.3-0.8); MONOCYTES % (AUTO) 5.2 % (0.0-13.0); NEUTROPHILS # (AUTO) 10.7 x10^3/uL (2.2-4.8); NEUTROPHILS % (AUTO) 91.4 % (42.0-75.0); PLATELET COUNT 270 X10^3/uL (150.0-450.0); RED BLOOD COUNT 4.42 X10^6/uL (3.5-5.4); RED CELL DISTRIBUTION WIDTH 15.5 % (11.6-16.5); WHITE BLOOD COUNT 11.7 X10^3/uL (3.6-10.0)
[2020-05-10 07:00] LABS: ALANINE AMINOTRANSFERASE 33 Units/L (12-78); ALBUMIN 2.7 g/dL (3.4-5.0); ALKALINE PHOSPHATASE 71 Units/L (46-116); ASPARTATE AMINO TRANSFERASE 40 Units/L (15-37); BLOOD UREA NITROGEN 12 mg/dL (7-18); CALCIUM 8.3 mg/dL (8.5-10.1); CARBON DIOXIDE 21.9 mmol/L (21-32); CHLORIDE 110 mmol/L (98-107); COR CA(FOR HYPOALB) 9.3 mg/dL (8.5-10.1); COR NA(FOR HYPERGLY) 146 mmol/L (136-145); SODIUM 145 mmol/L (136-145); TOTAL PROTEIN 6.1 g/dL (6.4-8.2); eGFR NON BLACK RACES > 60 (>60)
[2020-05-10 07:43] LABS: BAND NEUTROPHILS % 2 % (0-10); METAMYELOCYTES % 1; PLATELET MORPHOLOGY COMMENT NORMAL (NORMAL)
[2020-05-10] MEDS ORDERED: LEVAQUIN PREMIX IV 750 MG 750 MG/150 ML BAG IV SCH (09:00)
[2020-05-10] MEDS: DIFLUCAN PO SCH (10:23)
[2020-05-10] MEDS: ELIQUIS PO SCH (10:23)
[2020-05-10] MEDS: FOLIC ACID TAB 1 MG PO SCH (10:24)
[2020-05-10] MEDS: FORTAZ or TAZICEF VIAL INJ IV SCH (10:25)
[2020-05-10] MEDS: LIPITOR TAB 20 MG PO SCH (10:25)
[2020-05-10] MEDS: LOPRESSOR TAB 25 MG PO SCH (10:26)
[2020-05-10] MEDS: PEPCID 20 MG IV PREMIX* 20 MG/50 ML BAG IV SCH (10:26)
[2020-05-10] MEDS: MOBIC TAB 15 MG PO SCH (10:26)
[2020-05-10] MEDS: ROBITUSSIN DM PO SCH ×2 (10:28→10:53)
[2020-05-10] MEDS: THEO-DUR TAB 300 MG 12-HR PO SCH (10:29)
[2020-05-10] MEDS: ZyrTEC TAB 10 MG PO SCH (10:30)
[2020-05-10] MEDS: VITAMIN D3 125 mcg (5,000 UNITS) PO SCH (10:30)
[2020-05-10] MEDS ORDERED: NS 100 ML IV 100 ML IV ONE (10:33)
[2020-05-10] MEDS: PROTONIX INJ 40 MG VIAL IVP SCH (10:34)
[2020-05-10] MEDS: ZINC SULFATE PO SCH (10:34)
[2020-05-10] MEDS: PULMICORT NEB TX 0.5 MG NEB SCH (11:57)
[2020-05-10] MEDS: MUCOMYST 20% 200 MG/ML NEB SCH (11:57)
[2020-05-10] MEDS: ACCUNEB 1.25 MG NEBULE NEB SCH (11:57)
[2020-05-10 12:42] VITALS: BP 160/68
[2020-05-10] MEDS: ZOFRAN INJ 4 MG VIAL IVP PRN (12:59)
== END 2020-05-10 14:05 | disposition home health service (06) | DRG 177 ==
LOC: ER 13:44 → MED/SURG 18:04
PROVIDERS: ADMIT Internal Medicine; ATTEND Internal Medicine
DX: U07.1 COVID-19; J12.82 Pneumonia due to coronavirus disease 2019; R79.82 Elevated C-reactive protein (CRP); A04.9 Bacterial intestinal infection, unspecified; R53.1 Weakness; R79.89 Other specified abnormal findings of blood chemistry; R06.02 Shortness of breath; R19.7 Diarrhea, unspecified

== ENCOUNTER 2023-11-11 10:48 | Observation (INO) ==
[2023-11-11 12:44] LABS: BASOPHILS % (AUTO) 0.4 % (0.2-1.0); MONOCYTES # (AUTO) 0.2 x10^3/uL (0.3-0.8)
[2023-11-11 12:48] LABS: EOSINOPHILS % (AUTO) 0.1 % (0.9-2.9); HEMATOCRIT 46.8 % (36.0-47.0); HEMOGLOBIN 15.3 g/dL (12.0-16.0); LYMPHOCYTES # (AUTO) 0.5 X10^3/uL (1.3-2.9); LYMPHOCYTES % (AUTO) 4.8 % (21.0-51.0); MEAN CORPUSCULAR HEMOGLOBIN 29.7 pg (27.0-34.0); MEAN CORPUSCULAR HGB CONC 32.6 g/dL (33.0-35.0); MEAN CORPUSCULAR VOLUME 91.2 fL (80.0-100.0); MEAN PLATELET VOLUME 7.9 fL (7.4-11.0); MONOCYTES % (AUTO) 2.1 % (0.0-13.0); NEUTROPHILS # (AUTO) 10.6 x10^3/uL (2.2-4.8); NEUTROPHILS % (AUTO) 92.6 % (42.0-75.0); PLATELET COUNT 258 X10^3/uL (150.0-450.0); RED BLOOD COUNT 5.14 X10^6/uL (3.5-5.4); RED CELL DISTRIBUTION WIDTH 15.8 % (11.6-16.5); WHITE BLOOD COUNT 11.5 X10^3/uL (3.6-10.0)
[2023-11-11 12:55] LABS: ALANINE AMINOTRANSFERASE 23 Units/L (12-78); ALBUMIN 4.2 g/dL (3.4-5.0); ALKALINE PHOSPHATASE 98 Units/L (46-116); ASPARTATE AMINO TRANSFERASE 20 Units/L (15-37); BLOOD UREA NITROGEN 21 mg/dL (7-18); CALCIUM 10.2 mg/dL (8.5-10.1); CARBON DIOXIDE 27.8 mmol/L (21-32); CHLORIDE 104 mmol/L (98-107); COR NA(FOR HYPERGLY) 142 mmol/L (136-145); CREATININE 1.15 mg/dL (0.55-1.02); GLUCOSE 118 mg/dL (65-99); POTASSIUM 4.3 mmol/L (3.5-5.1); SODIUM 142 mmol/L (136-145); TOTAL PROTEIN 8.2 g/dL (6.4-8.2); eGFR NON BLACK RACES 49 (>60)
[2023-11-11] MEDS: NS 1,000 ML IV 1,000 ML IV SCH (13:07)
[2023-11-11 13:14] LABS: BAND NEUTROPHILS % 4 % (0-10); PLATELET MORPHOLOGY COMMENT NORMAL (NORMAL)
[2023-11-11 14:19] VITALS: BMI 29.2
[2023-11-11] MEDS: READI-CAT 2 ONE (14:23)
--- NOTE | 2023-11-11 17:06 | CT ---
EXAM:ABDCMEN/PELVIS WITH CONHISTORY:DIVERTICULITIS ; OPEN HEART SXCOMPARISON:None.TECHNIQUE:Following the intravenous administration of iodinated contrast, spiral CT imaging was performed through the abdomen and pelvis and axial, coronal, and sagittal CT images were generated.FINDINGS:There is coarsening of the interstitial markings in the lung bases. There is no infiltrate or malignancy. Heart size is normal. The liver, gallbladder, pancreas, spleen, adrenal glands are normal. The kidneys are mildly atrophic but the parenchyma enhances normally. There is no mass or stone. There is prominence of the ureters bilaterally. There is a definite stone in the distal left ureter at the UVJ measuring at 3 mm in diameter. There is a 2nd stone on the right side which could be in the distal ureter or could be a phlebolith there is mild urinary bladder wall thickening. The uterus is normal and there is no adnexal mass. The stomach and small bowel loops are normal. The appendix is normal. There is diverticulosis of the distal colon but no diverticulitis. There is degeneration of the spine but no worrisome bone marrow lesion.IMPRESSION:1. Left-sided hydronephrosis due to a 3 mm stone in the left UVJ.2. Questionable stone in the distal right ureter versus phlebolith.3. Diverticulosis coli without diverticulitis.THIS IS AN ELECTRONICALLY VERIFIED FINAL REPORT11/11/2023 5:03 PM - Electronically signed by Morales Mckenna MD
[2023-11-11] MEDS: OMNIPAQUE 350 mg/mL 100 mL BTL 100 ML ONE (17:27)
[2023-11-11] MEDS ORDERED: TORADOL 30 MG VIAL IVP PRN (18:02)
[2023-11-11] MEDS: ROCEPHIN VIAL 1 GRAM 1 G in NS 100 ML IV 100 ML IV SCH (19:48)
[2023-11-11] MEDS: TORADOL 30 MG VIAL IVP SCH (19:48)
[2023-11-11 21:16] LABS: BILIRUBIN,URINE NEGATIVE (NEGATIVE); BLOOD/HEMOGLOBIN,URINE 2+ (NEGATIVE); GLUCOSE, URINE NEGATIVE (NEGATIVE); KETONES,URINE NEGATIVE (NEGATIVE); LEUKOCYTE ESTERASE ,URINE 1+ (NEGATIVE); NITRITES,URINE NEGATIVE (NEGATIVE); PROTEIN,URINE 2+ (NEGATIVE); UROBILINOGEN,URINE NORMAL (NORMAL)
[2023-11-11 21:42] LABS: APPEARANCE,URINE CLEAR (CLEAR); COLOR,URINE STRAW (YELLOW)
[2023-11-11 21:54] LABS: BACTERIA,URINE TRACE /HPF (NEGATIVE); SQUAMOUS EPITHELIAL CELL,UR RARE /HPF (NEGATIVE)
[2023-11-12 06:19] LABS: BASOPHILS % (AUTO) 0.7 % (0.2-1.0); EOSINOPHILS # (AUTO) 0.3 x10^3/uL (0.0-0.2); EOSINOPHILS % (AUTO) 3.7 % (0.9-2.9); HEMATOCRIT 38.8 % (36.0-47.0); HEMOGLOBIN 12.9 g/dL (12.0-16.0); LYMPHOCYTES # (AUTO) 1.5 X10^3/uL (1.3-2.9); LYMPHOCYTES % (AUTO) 22.2 % (21.0-51.0); MEAN CORPUSCULAR HEMOGLOBIN 30.2 pg (27.0-34.0); MEAN CORPUSCULAR HGB CONC 33.2 g/dL (33.0-35.0); MEAN CORPUSCULAR VOLUME 90.8 fL (80.0-100.0); MEAN PLATELET VOLUME 8.1 fL (7.4-11.0); MONOCYTES # (AUTO) 0.4 x10^3/uL (0.3-0.8); MONOCYTES % (AUTO) 5.4 % (0.0-13.0); NEUTROPHILS # (AUTO) 4.7 x10^3/uL (2.2-4.8); PLATELET COUNT 205 X10^3/uL (150.0-450.0); RED BLOOD COUNT 4.27 X10^6/uL (3.5-5.4); RED CELL DISTRIBUTION WIDTH 15.9 % (11.6-16.5); WHITE BLOOD COUNT 6.9 X10^3/uL (3.6-10.0)
[2023-11-12 07:03] LABS: ALANINE AMINOTRANSFERASE 19 Units/L (12-78); ALBUMIN 3.3 g/dL (3.4-5.0); ALKALINE PHOSPHATASE 90 Units/L (46-116); ASPARTATE AMINO TRANSFERASE 11 Units/L (15-37); BLOOD UREA NITROGEN 18 mg/dL (7-18); CALCIUM 8.6 mg/dL (8.5-10.1); CARBON DIOXIDE 26.3 mmol/L (21-32); CHLORIDE 109 mmol/L (98-107); COR CA(FOR HYPOALB) 9.2 mg/dL (8.5-10.1); CREATININE 0.98 mg/dL (0.55-1.02); GLUCOSE 106 mg/dL (65-99); POTASSIUM 3.7 mmol/L (3.5-5.1); SODIUM 144 mmol/L (136-145); TOTAL PROTEIN 6.4 g/dL (6.4-8.2); eGFR NON BLACK RACES 59 (>60)
[2023-11-12] MEDS ORDERED: CONSULT PHARMACY - POTASSIUM & MAGNESIUM XX SCH (08:00)
[2023-11-12] MEDS ORDERED: ALPRAZOLAM ODT PO PRN (08:45)
[2023-11-12] MEDS: K-DUR TAB 20 MEQ PO SCH (09:14)
[2023-11-12] MEDS: FLOMAX PO SCH (09:14)
[2023-11-12] MEDS: LIPITOR TAB 20 MG PO SCH (09:15)
[2023-11-12] MEDS: FOLIC ACID TAB 1 MG PO SCH (09:15)
[2023-11-12] MEDS: TOPROL XL PO SCH (09:49)
[2023-11-12] MEDS: NORCO 5/325 MG TAB PO PRN (11:07)
[2023-11-12] MEDS ORDERED: CATAPRES TAB 0.1 MG ONE (12:55)
[2023-11-12] MEDS: CATAPRES TAB 0.1 MG PO ONE (12:57)
--- NOTE | 2023-11-12 13:06 | EKG ---
Test Reason : bp 185/76 Blood Pressure : */* mmHG Vent. Rate : 57 BPM Atrial Rate : 57 BPM P-R Int : 144 ms QRS Dur : 96 ms QT Int : 454 ms P-R-T Axes : 4 16 94 degrees QTc Int : 441 ms Sinus bradycardia Nonspecific ST and T wave abnormality Abnormal ECG No previous ECGs available Confirmed by James Cortés MD ([id number]) on 11/13/2023 7:03:17 AM Referred By: Confirmed By: James Cortés MD
[2023-11-12] MEDS: ZESTRIL TAB 5 MG PO SCH (14:05)
[2023-11-12] MEDS: MORPHINE SULFATE INJ 2 MG INJ IVP PRN (14:07)
[2023-11-12] MEDS: ZOFRAN INJ 4 MG VIAL IVP PRN (14:46)
--- NOTE | 2023-11-12 18:42 | DR.H&P ---
H&P History & Physical for Day of: H&P Date: 11/11/23 Chief Complaint Chief Complaint: FEVER, N/V, LEFT ABDOMINAL PAIN History of Present Illness History of Present Illness: PT IS 73 WF, DIRECT ADMIT FROM DR HADDAD OFFICE WITH CO SUDDEN ONSET OF FEVER, SWEATS, N/V AND LEFT ABDOMINAL PAIN. PT REPORT IT STARTED ON FRIDAY NIGHT AND WORSENED. PT REPORTS PAIN TO LEFT LOWER ABD LEFT SIDE AND LEFT FLANK. PT WAS NEGATIVE FOR FLU AND COVID IN THE OFFICE AND GIVEN IM TORADOL FOR PAIN. PT HAS PMH OF DIVERTICULOSIS AND SUSPECTED ACUTE DIVERTICULITIS. PT HAS PMH OF RA, CAD, OA AND HTN. PT ADMITTED FOR TREATMENT AND EVALUATION OF ACUTE ILLNESS. Past Medical History Past Medical History: Anxiety, Coronary Artery Disease, Dyslipidemia and Hypertension Past Surgical History Surgical History: CABG/Valve Surgery Family History Family Medical History: [place], Coronary Artery Disease and Hypertension Social History Does patient currently use any type of tobacco product: No Alcohol Use: None Drug Use: None Medications Home Medications: Home Medications Medication Instructions Recorded Confirmed Type alprazolam 0.5 mg tablet 0.5 mg PO DAILY PRN Anxiety 02/09/17 11/11/23 History folic acid 1 mg tablet 1 mg PO DAILY 02/09/17 11/11/23 History hydrocodone 5 mg-acetaminophen 325 1 tab PO DAILY PRN 02/09/17 11/11/23 History mg tablet meloxicam 15 mg tablet 15 mg PO DAILY 02/09/17 11/11/23 History atorvastatin 20 mg tablet 20 mg PO DAILY 05/06/20 11/11/23 History ergocalciferol (vitamin D2) 1,250 1,250 mcg PO WEEKLY 05/06/20 11/11/23 History mcg (50,000 unit) capsule ergocalciferol (vitamin D2) 1,250 1,250 mcg PO WEEKLY 11/11/23 11/11/23 History mcg (50,000 unit) capsule (Vitamin D2) metoprolol succinate 25 mg 25 mg PO QDAY 11/11/23 11/11/23 History tablet,extended release 24 hr Allergies Allergies Allergy/AdvReac Type Severity Reaction Status Date / Time aspartame Allergy Verified 11/11/23 12:38 [From Nutrasweet Aspartame] Sulfa (Sulfonamide Allergy Verified 11/11/23 12:38 Antibiotics) Labs 11/12/23 05:40 11/12/23 05:40 Labs: 11/11/23 21:04 Urine,Clean Catch Urine Culture - Preliminary Laboratory WBC 6.9 X10^3/uL (3.6-10.0) 11/12/23 05:40 RBC 4.27 X10^6/uL (3.5-5.4) 11/12/23 05:40 Hgb 12.9 g/dL (12.0-16.0) D 11/12/23 05:40 Hct 38.8 % (36.0-47.0) 11/12/23 05:40 MCV 90.8 fL (80.0-100.0) 11/12/23 05:40 MCH 30.2 pg (27.0-34.0) 11/12/23 05:40 MCHC 33.2 g/dL (33.0-35.0) 11/12/23 05:40 RDW 15.9 % (11.6-16.5) 11/12/23 05:40 Plt Count 205 X10^3/uL (150.0-450.0) 11/12/23 05:40 Plt Count Comment Adequate (ADEQUATE) 11/11/23 12:25 MPV 8.1 fL (7.4-11.0) 11/12/23 05:40 Neut % (Auto) 68.0 % (42.0-75.0) 11/12/23 05:40 Lymph % (Auto) 22.2 % (21.0-51.0) 11/12/23 05:40 [place] % (Auto) 5.4 % (0.0-13.0) 11/12/23 05:40 Eos % (Auto) 3.7 % (0.9-2.9) H 11/12/23 05:40 Baso % (Auto) 0.7 % (0.2-1.0) 11/12/23 05:40 Neut # (Auto) 4.7 x10^3/uL (2.2-4.8) 11/12/23 05:40 Lymph # (Auto) 1.5 X10^3/uL (1.3-2.9) 11/12/23 05:40 [place] # (Auto) 0.4 x10^3/uL (0.3-0.8) 11/12/23 05:40 Eos # (Auto) 0.3 x10^3/uL (0.0-0.2) H 11/12/23 05:40 Baso # (Auto) 0.0 X10^3/uL (0.0-0.1) 11/12/23 05:40 Absolute Nucleated RBC 0.1 /100WBC 11/12/23 05:40 Total Counted 100 11/11/23 12:25 Neutrophils % (Manual) 90 % (39-76) H 11/11/23 12:25 Band Neutrophils % 4 % (0-10) 11/11/23 12:25 Lymphocytes % (Manual) 6 % (13-43) L 11/11/23 12:25 Plt Morphology Comment Normal (NORMAL) 11/11/23 12:25 RBC Morphology Normal (NORMAL) 11/11/23 12:25 Sodium 144 mmol/L (136-145) 11/12/23 05:40 Corrected Sodium TNP 11/12/23 05:40 Potassium 3.7 mmol/L (3.5-5.1) 11/12/23 05:40 Chloride 109 mmol/L (98-107) H 11/12/23 05:40 Carbon Dioxide 26.3 mmol/L (21-32) 11/12/23 05:40 BUN 18 mg/dL (7-18) 11/12/23 05:40 Creatinine 0.98 mg/dL (0.55-1.02) 11/12/23 05:40 Est GFR (MDRD) Af Amer > 60 (>60) 11/12/23 05:40 Est GFR (MDRD) Non-Af 59 (>60) 11/12/23 05:40 Glucose 106 mg/dL (65-99) H 11/12/23 05:40 Calcium 8.6 mg/dL (8.5-10.1) 11/12/23 05:40 Corrected Calcium 9.2 mg/dL (8.5-10.1) 11/12/23 05:40 Magnesium 2.3 mg/dL (2.0-2.9) 11/12/23 05:40 Total Bilirubin 0.30 mg/dL (0.2-1.0) 11/12/23 05:40 AST 11 Units/L (15-37) L 11/12/23 05:40 ALT 19 Units/L (12-78) 11/12/23 05:40 Alkaline Phosphatase 90 Units/L (46-116) 11/12/23 05:40 Total Protein 6.4 g/dL (6.4-8.2) 11/12/23 05:40 Albumin 3.3 g/dL (3.4-5.0) L 11/12/23 05:40 Globulin 3.1 g/dL (2.5-4.5) 11/12/23 05:40 Albumin/Globulin Ratio 1.1 Ratio (1.1-2.1) 11/12/23 05:40 Specimen Type Clean catch urine 11/11/23 21:04 Urine Color Straw (YELLOW) 11/11/23 21:04 Urine Appearance Clear (CLEAR) 11/11/23 21:04 Urine pH 5.0 (5.0 - 8.0) 11/11/23 21:[address] 1.010 (1.000-1.030) 11/11/23 21:04 Urine Protein 2+ (NEGATIVE) 11/11/23 21:04 Urine Glucose (UA) Negative (NEGATIVE) 11/11/23 21:04 Urine Ketones Negative (NEGATIVE) 11/11/23 21:04 Urine Blood 2+ (NEGATIVE) 11/11/23 21:04 Urine Nitrite Negative (NEGATIVE) 11/11/23 21:04 Urine Bilirubin Negative (NEGATIVE) 11/11/23 21:04 Urine Urobilinogen Normal (NORMAL) 11/11/23 21:04 Ur Leukocyte Esterase 1+ (NEGATIVE) 11/11/23 21:04 Urine RBC 3-5 /HPF (0-3) A 11/11/23 21:04 Urine WBC 0-2 /HPF (0-5) 11/11/23 21:04 Ur Squamous Epith Cells Rare /HPF (NEGATIVE) 11/11/23 21:04 Urine Bacteria Trace /HPF (NEGATIVE) 11/11/23 21:04 Ur Culture Indicated? No/not indicated 11/11/23 21:04 Review of Systems Constitutional: Fever, Chills and Weakness Eyes: No Symptoms Reported ENT: No Symptoms Reported Respiratory: No Symptoms Reported Cardiovascular: No Symptoms Reported Gastrointestinal: Vomiting and Abdominal Pain Genitourinary: Retention Musculoskeletal: Back Pain Skin: Other (SWEATING) Neurological: No Symptoms Reported Physical Exam Vital Signs: Vital Signs Temperature 97.9 F Temperature 97.5 F Pulse Rate [Left Radial] 55 Pulse Rate [Left Radial] 58 Respiratory Rate 17 Respiratory Rate 17 Respiratory Rate 18 Respiratory Rate 20 Respiratory Rate 19 Respiratory Rate 18 Respiratory Rate 19 Blood Pressure [Left Arm] 149/68 Blood Pressure [Left Arm] 168/88 Blood Pressure [Left Arm] 182/88 Blood Pressure [Left Arm] 186/79 Blood Pressure [Left Arm] 185/76 Blood Pressure [Left Arm] 185/76 Blood Pressure [Left Arm] 206/86 Blood Pressure [Left Arm] 180/80 O2 Sat by Pulse Oximetry 92 O2 Sat by Pulse Oximetry 98 Oriented: Normal Eyes: Normal Ear: Normal Nose: Discharge Throat: Normal Respiratory: RLL Diminished and LLL Diminished Cardiovascular: Normal Auscultation: Bowel Sounds: Normal Palpation: negative Spleen Enlarged or Liver Enlarged Tenderness: LUQ and LLQ Musculoskeletal: Back:Thoracic and Tender (LEFT CVA TENDERNESS) Psychiatric: Anxiety Mood Description: Anxious (TEARFUL) Speech Pattern: Clear and Appropriate Assessment/Plan (1) Abdominal pain: Status: Acute Plan: ADMIT, ADMISSION LABS, UA CT ABD PELVIS, PAIN AND NAUSEA CONTROL IV ROCEPHIN, VERIFY HOME MEDICATION BP CONTROL (2) HTN (hypertension): Status: Acute (3) CAD (coronary artery disease): Status: Acute (4) Rheumatoid arthritis: Status: Acute
--- NOTE | 2023-11-12 18:51 | PCM.PROG ---
Progress Note Progress Note for Day of Date of Exam: 11/12/23 Subjective Subjective: PT IS 73 WF, DIRECT ADMIT FROM DR HADDAD OFFICE WITH CO LEFT SIDE ABDOMINAL PAIN WITH FEVER AND N/V ONSET FRIDAY NIGHT. PT HAS PMH OF DIVERTICULOSIS AND SUSPECTED ACUTE DIVERTICULITIS ON ADMISSION. 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 PT HAD A CT SCAN WITH CONTRAST REVEALING ACUTE RENAL STONE WITH HYDRONEPHROSIS TO LEFT URETER. PT HAS DIVERTICULAR DISEASE WITHOUT ACUTE DIVERTICULITIS. PT WAS STARTED ON IV TORADOL ON ADMISSION WITH SOME PAIN IMPROVEMENT, HOWEVER PAIN RETURNED TODAY WITH HYPERTENSIVE EPISODE. PT WAS GIVEN FLOMAX PO AND MORPHINE PRN. PT HAS BEEN ON NS AT 75CC/HR SINCE ADMISSION WITH IMPROVED URINE OUTPT. PT DENIES ANY N/V THIS AM. PLAN TO CONTINUE WITH PAIN CONTROL AND ENCOURAGE PT TO STRAIN URINE, PLAN TO SEND STONE FOR ANALYSIS IF COLLECTED. PTS HOME MEDICATION FOR BP CONTROL WAS RESUMED. Past Medical Family Social History Allergies: Allergies aspartame [From [place] Aspartame] Allergy (Verified 11/11/23 12:38) Sulfa (Sulfonamide Antibiotics) Allergy (Verified 11/11/23 12:38) Vital Signs and I&O's Vital Signs: Vital Signs Temperature 97.9 F Temperature 97.5 F Pulse Rate [Left Radial] 55 Pulse Rate [Left Radial] 58 Respiratory Rate 17 Respiratory Rate 17 Respiratory Rate 18 Respiratory Rate 20 Respiratory Rate 19 Respiratory Rate 18 Respiratory Rate 19 Blood Pressure [Left Arm] 149/68 Blood Pressure [Left Arm] 168/88 Blood Pressure [Left Arm] 182/88 Blood Pressure [Left Arm] 186/79 Blood Pressure [Left Arm] 185/76 Blood Pressure [Left Arm] 185/76 Blood Pressure [Left Arm] 206/86 Blood Pressure [Left Arm] 180/80 O2 Sat by Pulse Oximetry 92 O2 Sat by Pulse Oximetry 98 Intake and Output: Intake & Output 11/10/23 11/11/23 11/12/23 11/13/23 11:59 11:59 11:59 11:59 Intake Total 1532 / 1532 1238 / 1238 Balance 1532 / 1532 1238 / 1238 Physical Exam Oriented: Normal Eyes: Normal Ear: Normal Nose: Discharge Throat: Normal Cardiovascular: Normal Auscultation: Bowel Sounds: Normal Tenderness: LUQ and LLQ Musculoskeletal: Back:Thoracic and Tender (LEFT CVA TENDERNESS) Psychiatric: Anxiety Mood Description: Anxious (TEARFUL) Speech Pattern: Clear and Appropriate Laboratory and Diagnostics 11/12/23 05:40 11/12/23 05:40 Labs: 11/11/23 21:04 Urine,Clean Catch Urine Culture - Preliminary Laboratory WBC 6.9 X10^3/uL (3.6-10.0) 11/12/23 05:40 RBC 4.27 X10^6/uL (3.5-5.4) 11/12/23 05:40 Hgb 12.9 g/dL (12.0-16.0) D 11/12/23 05:40 Hct 38.8 % (36.0-47.0) 11/12/23 05:40 MCV 90.8 fL (80.0-100.0) 11/12/23 05:40 MCH 30.2 pg (27.0-34.0) 11/12/23 05:40 MCHC 33.2 g/dL (33.0-35.0) 11/12/23 05:40 RDW 15.9 % (11.6-16.5) 11/12/23 05:40 Plt Count 205 X10^3/uL (150.0-450.0) 11/12/23 05:40 Plt Count Comment Adequate (ADEQUATE) 11/11/23 12:25 MPV 8.1 fL (7.4-11.0) 11/12/23 05:40 Neut % (Auto) 68.0 % (42.0-75.0) 11/12/23 05:40 Lymph % (Auto) 22.2 % (21.0-51.0) 11/12/23 05:40 [place] % (Auto) 5.4 % (0.0-13.0) 11/12/23 05:40 Eos % (Auto) 3.7 % (0.9-2.9) H 11/12/23 05:40 Baso % (Auto) 0.7 % (0.2-1.0) 11/12/23 05:40 Neut # (Auto) 4.7 x10^3/uL (2.2-4.8) 11/12/23 05:40 Lymph # (Auto) 1.5 X10^3/uL (1.3-2.9) 11/12/23 05:40 [place] # (Auto) 0.4 x10^3/uL (0.3-0.8) 11/12/23 05:40 Eos # (Auto) 0.3 x10^3/uL (0.0-0.2) H 11/12/23 05:40 Baso # (Auto) 0.0 X10^3/uL (0.0-0.1) 11/12/23 05:40 Absolute Nucleated RBC 0.1 /100WBC 11/12/23 05:40 Total Counted 100 11/11/23 12:25 Neutrophils % (Manual) 90 % (39-76) H 11/11/23 12:25 Band Neutrophils % 4 % (0-10) 11/11/23 12:25 Lymphocytes % (Manual) 6 % (13-43) L 11/11/23 12:25 Plt Morphology Comment Normal (NORMAL) 11/11/23 12:25 RBC Morphology Normal (NORMAL) 11/11/23 12:25 Sodium 144 mmol/L (136-145) 11/12/23 05:40 Corrected Sodium TNP 11/12/23 05:40 Potassium 3.7 mmol/L (3.5-5.1) 11/12/23 05:40 Chloride 109 mmol/L (98-107) H 11/12/23 05:40 Carbon Dioxide 26.3 mmol/L (21-32) 11/12/23 05:40 BUN 18 mg/dL (7-18) 11/12/23 05:40 Creatinine 0.98 mg/dL (0.55-1.02) 11/12/23 05:40 Est GFR (MDRD) Af Amer > 60 (>60) 11/12/23 05:40 Est GFR (MDRD) Non-Af 59 (>60) 11/12/23 05:40 Glucose 106 mg/dL (65-99) H 11/12/23 05:40 Calcium 8.6 mg/dL (8.5-10.1) 11/12/23 05:40 Corrected Calcium 9.2 mg/dL (8.5-10.1) 11/12/23 05:40 Magnesium 2.3 mg/dL (2.0-2.9) 11/12/23 05:40 Total Bilirubin 0.30 mg/dL (0.2-1.0) 11/12/23 05:40 AST 11 Units/L (15-37) L 11/12/23 05:40 ALT 19 Units/L (12-78) 11/12/23 05:40 Alkaline Phosphatase 90 Units/L (46-116) 11/12/23 05:40 Total Protein 6.4 g/dL (6.4-8.2) 11/12/23 05:40 Albumin 3.3 g/dL (3.4-5.0) L 11/12/23 05:40 Globulin 3.1 g/dL (2.5-4.5) 11/12/23 05:40 Albumin/Globulin Ratio 1.1 Ratio (1.1-2.1) 11/12/23 05:40 Specimen Type Clean catch urine 11/11/23 21:04 Urine Color Straw (YELLOW) 11/11/23 21:04 Urine Appearance Clear (CLEAR) 11/11/23 21:04 Urine pH 5.0 (5.0 - 8.0) 11/11/23 21:04 Ur Specific [place] 1.010 (1.000-1.030) 11/11/23 21:04 Urine Protein 2+ (NEGATIVE) 11/11/23 21:04 Urine Glucose (UA) Negative (NEGATIVE) 11/11/23 21:04 Urine Ketones Negative (NEGATIVE) 11/11/23 21:04 Urine Blood 2+ (NEGATIVE) 11/11/23 21:04 Urine Nitrite Negative (NEGATIVE) 11/11/23 21:04 Urine Bilirubin Negative (NEGATIVE) 11/11/23 21:04 Urine Urobilinogen Normal (NORMAL) 11/11/23 21:04 Ur Leukocyte Esterase 1+ (NEGATIVE) 11/11/23 21:04 Urine RBC 3-5 /HPF (0-3) A 11/11/23 21:04 Urine WBC 0-2 /HPF (0-5) 11/11/23 21:04 Ur Squamous Epith Cells Rare /HPF (NEGATIVE) 11/11/23 21:04 Urine Bacteria Trace /HPF (NEGATIVE) 11/11/23 21:04 Ur Culture Indicated? No/not indicated 11/11/23 21:04 Plan (1) Multiple renal calculi: Status: Acute Plan: FLOMAX, IV HYDRATION, PAIN CONTROL STRAIN URINE BP CONTROL REPEAT AM LABS (2) Abdominal pain: Status: Acute Plan: LABS, UA CT ABD PELVIS, PAIN AND NAUSEA CONTROL IV ROCEPHIN, VERIFY HOME MEDICATION BP CONTROL (3) HTN (hypertension): Status: Acute (4) CAD (coronary artery disease): Status: Acute (5) Rheumatoid arthritis: Status: Acute
[2023-11-13 05:28] LABS: BASOPHILS # (AUTO) 0.1 X10^3/uL (0.0-0.1); BASOPHILS % (AUTO) 0.8 % (0.2-1.0); EOSINOPHILS # (AUTO) 0.2 x10^3/uL (0.0-0.2); EOSINOPHILS % (AUTO) 2.2 % (0.9-2.9); HEMATOCRIT 36.9 % (36.0-47.0); HEMOGLOBIN 12.2 g/dL (12.0-16.0); LYMPHOCYTES # (AUTO) 1.6 X10^3/uL (1.3-2.9); LYMPHOCYTES % (AUTO) 18.6 % (21.0-51.0); MEAN CORPUSCULAR HEMOGLOBIN 30.3 pg (27.0-34.0); MEAN CORPUSCULAR VOLUME 91.8 fL (80.0-100.0); MEAN PLATELET VOLUME 8.4 fL (7.4-11.0); MONOCYTES # (AUTO) 0.5 x10^3/uL (0.3-0.8); MONOCYTES % (AUTO) 5.7 % (0.0-13.0); NEUTROPHILS # (AUTO) 6.2 x10^3/uL (2.2-4.8); NEUTROPHILS % (AUTO) 72.7 % (42.0-75.0); PLATELET COUNT 203 X10^3/uL (150.0-450.0); RED BLOOD COUNT 4.02 X10^6/uL (3.5-5.4); RED CELL DISTRIBUTION WIDTH 15.7 % (11.6-16.5); WHITE BLOOD COUNT 8.5 X10^3/uL (3.6-10.0)
[2023-11-13 05:38] LABS: ALANINE AMINOTRANSFERASE 16 Units/L (12-78); ALBUMIN 3.1 g/dL (3.4-5.0); ALKALINE PHOSPHATASE 75 Units/L (46-116); ASPARTATE AMINO TRANSFERASE 16 Units/L (15-37); BLOOD UREA NITROGEN 16 mg/dL (7-18); CALCIUM 8.6 mg/dL (8.5-10.1); CARBON DIOXIDE 25.4 mmol/L (21-32); CHLORIDE 109 mmol/L (98-107); COR CA(FOR HYPOALB) 9.3 mg/dL (8.5-10.1); COR NA(FOR HYPERGLY) 144 mmol/L (136-145); GLUCOSE 117 mg/dL (65-99); MAGNESIUM 2.2 mg/dL (2.0-2.9); POTASSIUM 4.2 mmol/L (3.5-5.1); SODIUM 144 mmol/L (136-145); TOTAL PROTEIN 6.3 g/dL (6.4-8.2); eGFR NON BLACK RACES 52 (>60)
[2023-11-13 08:06] VITALS: RESP 21
[2023-11-13] MEDS: VITAMIN D (1.25MG) PO SCH (08:35)
[2023-11-13 12:33] VITALS: BP 140/63; PULSE 55; TEMP 97; O2SAT 97
--- NOTE | 2023-11-13 15:03 | RAD ---
EXAMINATION:KUBHISTORY:RENAL STONE; htnm mi, cabg, valve, d&c .COMPARISON STUDY:None.TECHNIQUE:Single supine AP view of the abdomen and pelvisFINDINGS:Small amount of contrast within the right colon, proximal to mid transverse colon obscuring the underlying structures.The renal shadows/urinary tract structures are obscured by bowel gas and contrast within the colon.Mild curvature lumbar spine convexity toward the right. Spondylosis. Mild degenerative changes SI joints, hip joints, pubic symphysis.IMPRESSION:Normal bowel-gas pattern for the supine view. The urinary tract structures are obscured.THIS IS AN ELECTRONICALLY VERIFIED FINAL REPORT11/13/2023 2:53 PM - Electronically signed by Madison Guerrier MD
[2023-11-16 21:41] LABS: STONE WEIGHT 12 mg
== END 2023-11-13 14:35 | disposition home or self-care (01) ==
LOC: MED/SURG
PROVIDERS: ADMIT Internal Medicine; ATTEND Internal Medicine
DX: N20.1 Calculus of ureter; E78.5 Hyperlipidemia, unspecified; N13.39 Other hydronephrosis; R00.1 Bradycardia, unspecified; I10 Essential (primary) hypertension; R10.84 Generalized abdominal pain; M06.80 Other specified rheumatoid arthritis, unspecified site; R94.31 Abnormal electrocardiogram [ECG] [EKG]; I25.10 Atherosclerotic heart disease of native coronary artery without angina pectoris; F41.8 Other specified anxiety disorders; K57.30 Diverticulosis of large intestine without perforation or abscess without bleeding